=== PATIENT | male | born 1935 | race Caucasian/White ===

== ENCOUNTER 2016-12-03 09:09 | Outpatient (CLI) ==
[2015-04-02 09:22] VITALS: BMI 27.0
[2016-12-03 09:33] LABS: HEMATOCRIT 42.1 % (42.0-52.0); HEMOGLOBIN 14.6 g/dl (14.0-18.0); MEAN CORPUSCULAR HEMOGLOBIN 31.9 pg (27.0-31.0); MEAN CORPUSCULAR HGB CONC 34.7 (31.8-35.4); MEAN CORPUSCULAR VOLUME 92.1 fl (80.0-94.0); RED BLOOD COUNT 4.57 10^6/ul (4.70-6.10); WHITE BLOOD COUNT 4.19 K/ul (4.2-10.2)
[2016-12-03 09:35] LABS: BILIRUBIN,URINE Negative (NEGATIVE); KETONES,URINE Negative (NEGATIVE); LEUKOCYTE ESTERASE ,URINE Negative (NEGATIVE); NITRITE,URINE Negative (NEGATIVE); PH,URINE 5.5 (5-9); PROTEIN,URINE Negative (NEGATIVE); URINE, BLOOD Negative (NEGATIVE)
[2016-12-03 09:42] LABS: ADD URINE MICROSCOPIC YES
[2016-12-03 10:32] LABS: ALBUMIN 3.9 g/dL (3.4-5.0); ANION GAP 14.4; BUN/CREATININE RATIO 15.02; CALCIUM 9.6 mg/dL (8.2-10.2); CREATININE 1.73 mg/dL (0.60-1.10); MAGNESIUM 2.1 mg/dL (1.7-2.2); PHOSPHORUS 3.1 mg/dL (2.3-3.7); POTASSIUM 4.4 mmol/L (3.5-5.1); URIC ACID 6.8 mg/dL (2.6-7.2)
[2016-12-04 09:37] LABS: URINE CREATINE 91.2 mg/dL (Not Estab.)
== END 2016-12-03 09:10 | disposition home or self-care (01) ==
LOC: LAB 09:09
PROVIDERS: ATTEND Internal Medicine Nephrology
DX: N18.3 Chronic kidney disease, stage 3 (moderate) (principal); I10 Essential (primary) hypertension
CPT/HCPCS: 36415; 80069; 81001; 82306; 82570; 83735; 83970; 84156; 84550; 85027

== ENCOUNTER 2017-03-22 14:43 | Outpatient (CLI) ==
[2015-04-02 09:22] VITALS: BMI 27.0
[2017-03-22 15:07] LABS: HEMATOCRIT 35.4 % (42.0-52.0); HEMOGLOBIN 12.1 g/dl (14.0-18.0); MEAN CORPUSCULAR HEMOGLOBIN 32.7 pg (27.0-31.0); MEAN CORPUSCULAR HGB CONC 34.2 (31.8-35.4); MEAN CORPUSCULAR VOLUME 95.7 fl (80.0-94.0); RED BLOOD COUNT 3.7 10^6/ul (4.70-6.10); WHITE BLOOD COUNT 5.49 K/ul (4.2-10.2)
[2017-03-22 15:20] LABS: ALBUMIN/GLOBULIN RATIO 1.48; BILIRUBIN,TOTAL 1.13 mg/dL (0.00-1.20); BUN/CREATININE RATIO 22.81; CALCIUM 9.5 mg/dL (8.2-10.2); CREATININE 1.49 mg/dL (0.60-1.10); TOTAL PROTEIN 6.7 g/dL (5.8-8.1)
== END 2017-03-22 14:44 | disposition home or self-care (01) ==
LOC: LAB 14:43
PROVIDERS: ATTEND Emergency Medicine
DX: E78.5 Hyperlipidemia, unspecified (principal); E11.9 Type 2 diabetes mellitus without complications; I25.10 Atherosclerotic heart disease of native coronary artery without angina pectoris; N18.9 Chronic kidney disease, unspecified
CPT/HCPCS: 36415; 80053; 85027

== ENCOUNTER 2017-10-02 08:08 | Outpatient (CLI) ==
[2015-04-02 09:22] VITALS: BMI 27.0
== END 2017-10-02 08:09 | disposition home or self-care (01) ==
LOC: LAB 08:08
PROVIDERS: ATTEND Emergency Medicine
DX: E11.9 Type 2 diabetes mellitus without complications (principal); E78.5 Hyperlipidemia, unspecified; I25.10 Atherosclerotic heart disease of native coronary artery without angina pectoris
CPT/HCPCS: 36415; 80053; 80061; 83036; 85025

== ENCOUNTER 2017-10-21 12:57 | Outpatient (CLI) ==
[2015-04-02 09:22] VITALS: BMI 27.0
== END 2017-10-21 12:58 | disposition home or self-care (01) ==
LOC: LAB 12:57
PROVIDERS: ATTEND Emergency Medicine
DX: E11.9 Type 2 diabetes mellitus without complications (principal); N18.9 Chronic kidney disease, unspecified
CPT/HCPCS: 36415; 80053

== ENCOUNTER 2018-02-13 13:28 | Outpatient (CLI) ==
[2015-04-02 09:22] VITALS: BMI 27.0
== END 2018-02-13 13:29 | disposition home or self-care (01) ==
LOC: RHC-LAB 13:28
PROVIDERS: ATTEND Emergency Medicine
DX: E11.9 Type 2 diabetes mellitus without complications (principal); E78.5 Hyperlipidemia, unspecified; I25.10 Atherosclerotic heart disease of native coronary artery without angina pectoris
CPT/HCPCS: 36415; 80053; 80061; 83036; 85025

== ENCOUNTER 2018-05-22 11:36 | Outpatient (CLI) ==
[2015-04-02 09:22] VITALS: BMI 27.0
== END 2018-05-22 11:37 | disposition home or self-care (01) ==
LOC: RHC-LAB 11:36
PROVIDERS: ATTEND Emergency Medicine
DX: E11.9 Type 2 diabetes mellitus without complications (principal); E78.5 Hyperlipidemia, unspecified; I25.10 Atherosclerotic heart disease of native coronary artery without angina pectoris; N18.9 Chronic kidney disease, unspecified
CPT/HCPCS: 36415; 80053; 80061; 83036; 84443; 85025

== ENCOUNTER 2018-08-01 11:43 | Outpatient (CLI) ==
[2015-04-02 09:22] VITALS: BMI 27.0
== END 2018-08-01 11:44 | disposition home or self-care (01) ==
LOC: RHC-LAB 11:43
PROVIDERS: ATTEND Nurse Practitioner Family
DX: E11.9 Type 2 diabetes mellitus without complications (principal); I25.10 Atherosclerotic heart disease of native coronary artery without angina pectoris; N18.9 Chronic kidney disease, unspecified; Z12.5 Encounter for screening for malignant neoplasm of prostate
CPT/HCPCS: 36415; 80053; 83036; 85025

== ENCOUNTER 2018-10-31 08:41 | Outpatient (CLI) ==
[2015-04-02 09:22] VITALS: BMI 27.0
== END 2018-10-31 08:42 | disposition home or self-care (01) ==
LOC: LAB 08:41
PROVIDERS: ATTEND Nurse Practitioner Family
DX: E11.9 Type 2 diabetes mellitus without complications (principal); I25.10 Atherosclerotic heart disease of native coronary artery without angina pectoris; E78.5 Hyperlipidemia, unspecified
CPT/HCPCS: 36415; 80053; 80061; 83036; 85025

== ENCOUNTER 2023-07-11 09:42 | Inpatient (IN) ==
--- NOTE | 2023-07-11 09:57 | ED.PDOC ---
General ED Provider: Dr. SHIRA BARRIGA MD Chief Complaint: Weakness Stated Complaint: Patient presents for generalized weakness, decreased interactivity and worsening altered mental status. He has a hx of dementia, DM, HTN and heart disease. Over the past few weeks, his notes he is more altered. He has also been falling more and seems generally weak. No fevers. No cough. 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 He has a small amount of redness to the R side of his face where he hit his head in the yard 3 days ago. He is currently on xarelto. Family unsure if he lost consciousness. No other external injuries or signs of trauma. was hoping she could continue to care for him through the winter but he has become too much due to the worsening mental status. She is unsure if any of his medical problems have worsened or if it is simply his dementia progressing. Time Seen by Provider: 07/11/23 09:42 Mode of Arrival: Ambulance Information Source: Patient and Family () Primary Care Provider: ELSI CHEEK APRN Nursing and Triage Documentation Reviewed and Agree: Yes Review of Systems Review Of Systems Constitutional: Reports Malaise, Weakness and Loss of appetite; Denies Chills or Fever Eyes: Denies Blindness or Vision change Ears, Nose, Mouth, Throat: Denies Ear discharge, Nose discharge or Epistaxis Respiratory: Denies Cough, Shortness of Breath, Stridor or Wheezing Cardiac: Reports Irregular heart rate (known hx of afib, controlled); Denies Chest pain or Palpitations GI: Denies Abdomen distended, Diarrhea, Nausea or Vomiting : Reports Incontinence; Denies Burning or Hematuria Musculoskeletal: Denies Back pain Skin: Reports Bruising (R side of face) All Other Systems: Reviewed and Negative [facility] Medical History Congestive heart failure (03/13/17) I50.9 - Heart failure, unspecified (ICD-10) Diabetes mellitus E11.9 - Type 2 diabetes mellitus without complications (ICD-10) Encounter for completion of form with patient Z02.89 - Encounter for other administrative examinations (ICD-10) Heart valve disease (03/14/17) I38 - Endocarditis, valve unspecified (ICD-10) Hyperlipidemia E78.5 - Hyperlipidemia, unspecified (ICD-10) Hypertension I10 - Essential (primary) hypertension (ICD-10) Immunization refused Z28.21 - Immunization not carried out because of patient refusal (ICD-10) Medicare annual wellness visit, initial Z00.00 - Encounter for general adult medical examination without abnormal findings (ICD-10) Myocardial infarction I21.9 - Acute myocardial infarction, unspecified (ICD-10) Upper respiratory infection with cough and congestion J06.9 - Acute upper respiratory infection, unspecified (ICD-10) Family History (Updated 07/11/23 @ 15:01 by JONY PARRISHLP) Mother Diabetes Heart problem FATHER Heart problem Emphysema lung Social History Smoking and tobacco status: Former smoker Tobacco: How many years used: 25 How long ago did patient quit smokin Second hand smoke exposure: No Smoking risk assessment performed: No Alcohol intake: former Counseling given: No Substance use type: does not use Counseling given: No Kathe/yazdanism: MORMON Special kathe needs: No Agree to transfusion: Yes Caregiver/support person: Yes Foster care: No Household members: spouse Housing: house Marital status: M Lives independently: Yes Number of children: 3 Number of grandchildren: 4 Highest education level completed: Associate degree: academic program service: Yes status: retired branch: [employer] assignments: inside [facility] ([employer]) known or potential exposure: none long-term: No Current occupational status: retired Current occupational exposures/hazards: No 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 Pets and animals: Yes Leisure activites: reading and other History of recent travel: No Do you think of yourself as: straight/heterosexual Current gender identity: male Seatbelt use: always Drives intoxicated or rides with intoxicated local hazmat driver: No Water heater temperature set < 120 degrees: Yes Working smoke detector in home: Yes Fire extinguisher in home: Yes Carbon monoxide detector in home: No Firearms in home: No Surgical History History of right-sided carotid endarterectomy Z98.890 - Other specified postprocedural states (ICD-10) Physical Exam Physical Exam Appearance: Reports No pain distress Ill-appearing: Mild Pain Distress: None Eyes: Reports LENORA and EOMI ENT: Reports Ears normal, Nose normal and Oropharynx normal Neck: Supple Respiratory: Reports Airway patent and Breath sounds clear; Denies Wheezes or Retractions Cardiovascular: Reports Pulses normal and Irregular rhythm (controlled afib on monitor) GI/: Reports Soft and Nontender Musculoskeletal: Reports ROM intact (Hesitant to move on his own but does recoil from all touch most of the time) Skin: Reports Warm and Dry Neurological: Reports Sensation intact and Motor intact Psychiatric: Reports Affect appropriate Physician Notification Case Discussed Physician Notified: Louis Rhodes Time of Notification: 12:01 Comments: Agrees with plan for admission. Critical Care Note Critical Care Note Total Critical Care Time (mins): 0 Course Course 07/11/23 09:54 07/11/23 09:54 Orders, Labs, Meds: Lab Review 07/11/23 07/11/23 07/11/23 09:54 09:59 11:26 WBC 8.66 RBC 4.50 L Hgb 13.6 L Hct 43.7 MCV 97.1 H MCH 30.2 MCHC 31.1 L RDW Coeff of Francisco Javier 14.8 Plt Count 163 Immature Gran % (Auto) 0.2 Neut % (Auto) 80.6 H Lymph % (Auto) 8.8 L [place] % (Auto) 9.7 Eos % (Auto) 0.5 Baso % (Auto) 0.2 Neut # (Auto) 7.0 H Lymph # (Auto) 0.8 [place] # (Auto) 0.8 Eos # (Auto) 0.0 Baso # (Auto) 0.0 Immature Gran # (Auto) 0.0 Sodium 137.6 Potassium 3.43 L Chloride 102.3 Carbon Dioxide 27.3 Anion Gap 11.43 BUN 22.5 H Creatinine 1.10 Estimated GFR (MDRD) 63.00 BUN/Creatinine Ratio 20.45 Glucose 157.0 H Calcium 8.95 Magnesium 2.04 Total Bilirubin 3.21 H AST 30.0 ALT 23.6 Alkaline Phosphatase 115.9 NT-Pro-B Natriuret Pep 64656 H Total Protein 7.02 Albumin 4.17 Globulin 2.85 Albumin/Globulin Ratio 1.46 Urine Color Dark Urine Clarity Clear Urine pH 5.5 Ur Specific [place] >=1.030 Urine Protein 3+ H Urine Glucose (UA) Negative Urine Ketones Negative Urine Blood 1+ H Urine Nitrite Negative Urine Bilirubin 1+ H Urine Urobilinogen 1.0 H Ur Leukocyte Esterase Negative Urine Microscopic RBC 5-10 Ur Squamous Epith Cells 2-5 SARS CoV-2 RNA Rapid ALINA 07/11/23 12:45 WBC RBC Hgb Hct MCV MCH MCHC RDW Coeff of Francisco Javier Plt Count Immature Gran % (Auto) Neut % (Auto) Lymph % (Auto) [place] % (Auto) Eos % (Auto) Baso % (Auto) Neut # (Auto) Lymph # (Auto) [place] # (Auto) Eos # (Auto) Baso # (Auto) Immature Gran # (Auto) Sodium Potassium Chloride Carbon Dioxide Anion Gap BUN Creatinine Estimated GFR (MDRD) BUN/Creatinine Ratio Glucose Calcium Magnesium Total Bilirubin AST ALT Alkaline Phosphatase NT-Pro-B Natriuret Pep Total Protein Albumin Globulin Albumin/Globulin Ratio Urine Color Urine Clarity Urine pH Ur Specific [place] Urine Protein Urine Glucose (UA) Urine Ketones Urine Blood Urine Nitrite Urine Bilirubin Urine Urobilinogen Ur Leukocyte Esterase Urine Microscopic RBC Ur Squamous Epith Cells SARS CoV-2 RNA Rapid ALINA Negative Orders Category Date Time Status ADMIT PATIENT INPATIENT .TO [facility] (MONITORED BED) ADMISSION 07/11/23 12:43 Active ECHOCARDIOGRAM 2D-M MODE Routine CARDIO 07/11/23 13:00 Ordered OXYGEN Routine CARDIO 07/11/23 12:48 Active ACTIVITY .Early Mobilization for VTE Prevention CARE 07/11/23 12:48 Active BLOOD GLUCOSE MONITORING (MED/SURG) 0630,1100,1700,2100 CARE 07/11/23 12:49 Active GIVE HS SNACK 2100 CARE 07/11/23 12:49 Active INTAKE & OUTPUT Q8HR CARE 07/11/23 12:48 Active REMINDER: Give Insulin if Needed 0630,1100,1700,2100 CARE 07/11/23 12:48 Active TELEMETRY MONITORING TELE CARE 07/11/23 12:43 Active VITAL SIGNS Q4HR CARE 07/11/23 12:48 Active WEIGH PATIENT DAILY CARE 07/12/23 06:00 Active ADA 1800 CARLIE. DIET DIETARY 07/11/23 Dinner Ordered FLUID RESTRICTION 1800 ML DIETARY 07/11/23 Dinner Ordered HS SNACK DIETARY 07/11/23 Dinner Ordered Howe [ED CATHETER INSERTION AND CARE] .ONCE EMERGENCY 07/11/23 11:27 Active CBC W/ AUTO DIFF DAILY@0600 LAB 07/12/23 06:00 Ordered CBC W/ AUTO DIFF DAILY@0600 LAB 07/13/23 06:00 Ordered CBC W/ AUTO DIFF Stat LAB 07/11/23 09:54 Completed CMP [COMPREHENSIVE METABOLIC PANEL] Stat LAB 07/11/23 09:54 Completed COMPREHENSIVE METABOLIC PANEL DAILY@0600 LAB 07/12/23 06:00 Ordered COMPREHENSIVE METABOLIC PANEL DAILY@0600 LAB 07/13/23 06:00 Ordered COVID [SARS COV-2 RNA RAPID ALINA] Stat LAB 07/11/23 12:45 Completed ED PROBNP [NT-PROBNP(ED)] Stat LAB 07/11/23 09:59 Completed MAGNESIUM Stat LAB 07/11/23 09:54 Completed UA [URINALYSIS C & S IF INDICATED] Stat LAB 07/11/23 11:26 Completed Acetaminophen [Tylenol] Meds 07/11/23 12:48 Active 650 mg PO Q4H PRN Furosemide [Lasix] Meds 07/11/23 20:00 Active 40 mg IVP Q8HR Furosemide [Lasix] Meds 07/11/23 12:31 Discontinued 60 mg IVP ONCE ONE Hydralazine HCl Meds 07/11/23 12:31 Discontinued 10 mg IVP ONCE ONE Insulin Regular, Human [Humulin R] Meds 07/11/23 12:57 Active See Protocol SUBCUT PRN PRN RESUSCITATION STATUS Routine OTHERS 07/11/23 10:23 Ordered CHEST, 1V AP ONLY Stat RADS 07/11/23 09:[address] HEAD W/O CONTRAST Stat RADS 07/11/23 09:44 Completed Medications Generic Name Dose Route Start Last Admin Trade Name Freq PRN Reason Stop Dose Admin Acetaminophen 650 mg 07/11/23 12:48 Acetaminophen 325 Mg Tablet PO Q4H PRN Mild Pain Atorvastatin Calcium 80 mg 07/11/23 15:40 07/11/23 16:02 Atorvastatin Calcium 20 Mg Tablet PO 80 mg DAILY THOMAS Administration Carvedilol 3.125 mg 07/11/23 17:00 07/11/23 16:03 Carvedilol 3.125 Mg Tablet PO 3.125 mg BIDWM2 THOMAS Administration Ferrous Sulfate 324 mg 07/11/23 15:30 Ferrous Sulfate 324 Mg Tablet.Dr PO 3 TIMES PER WEEK THOMAS Furosemide 40 mg 07/11/23 20:00 Furosemide Inj 40 Mg/4 Ml Vial IVP Q8HR THOMAS Hydralazine HCl 10 mg 07/11/23 14:51 Hydralazine Hcl 20 Mg/Ml Sdv IVP Q6H PRN Hypertension Insulin Human Regular 0 unit 07/11/23 12:57 Insulin Regular, Human 100 Unit/Ml (3ml) Vial SUBCUT PRN PRN Hyperglycemia Protocol Losartan Potassium 50 mg 07/11/23 15:40 07/11/23 16:03 Losartan Potassium 25 Mg Tablet PO 50 mg DAILY THOMAS Administration Olanzapine 5 mg 07/11/23 14:51 Olanzapine 10 Mg Vial IM ONCE PRN Agitation Rivaroxaban 15 mg 07/11/23 17:00 07/11/23 16:02 Rivaroxaban 10 Mg Tablet PO 15 mg QPM THOMAS Administration Discontinued Medications Generic Name Dose Route Start Last Admin Trade Name Freq PRN Reason Stop Dose Admin Atorvastatin Calcium 80 mg 07/12/23 09:00 Atorvastatin Calcium 20 Mg Tablet PO DAILY THOMAS Carvedilol 3.125 mg 07/11/23 17:00 Carvedilol 6.25 Mg Tablet PO BIDWM2 THOMAS Furosemide 60 mg 07/11/23 12:31 07/11/23 12:48 Furosemide Inj 100 Mg/10 Ml Vial IVP 07/11/23 12:32 60 mg ONCE ONE Administration Hydralazine HCl 10 mg 07/11/23 12:31 07/11/23 12:47 Hydralazine Hcl 20 Mg/Ml Sdv IVP 07/11/23 12:32 10 mg ONCE ONE Administration Losartan Potassium 50 mg 07/12/23 09:00 Losartan Potassium 25 Mg Tablet PO DAILY [facility] Vital Signs: Temp Pulse Resp BP Pulse Ox 07/11/23 09:47 97.8 F 67 22 H 203/88 H 97 Discharge Plan Discharge Patient Disposition: ADMITTED INPATIENT Discharge Problem: Acute exacerbation of CHF (congestive heart failure), Dementia, Hypertension, Weakness, Fall Did you review [place] [employer] for ALL controlled substances?: Not Applicable ED Provider: SHIRA BARRIGA Physician Progress Note: MDM CHF: Patient with worsening shortness of breath over the past few weeks with constellation of symptoms concerning for possible CHF exacerbation. Patient not overtly hypoxic but with mild respiratory distress ans Sp)2 89-91%. No overt evidence of acute ischemia. Lower extremity swelling noted. Will trial continue diuresis with strict I/O. No evidence of JORDAN or cardiorenal syndrome. BNP elevated >28,000 Low suspicion for acute PE given exam and history. Given decline in functional status, patient appriprate for admission for diuresis and further cardiac evaluation vs home care. Spoke to Louis Kelly DIRECTORY ASSISTANCE OPERATOR to coordinate inpatient stay.
[2023-07-11 09:58] LABS: BASOPHILS % (AUTO) 0.2 % (0.0-3.0); EOSINOPHILS % (AUTO) 0.5 % (0.0-7.0); HEMATOCRIT 43.7 % (42.0-52.0); HEMOGLOBIN 13.6 g/dl (14.0-18.0); IMMATURE GRANULOCYTE % (AUTO) 0.2 % (0.0-5.0); LYMPHOCYTES # (AUTO) 0.8 K/uL (0.60-3.4); LYMPHOCYTES % (AUTO) 8.8 (10.0-50.0); MEAN CORPUSCULAR HEMOGLOBIN 30.2 pg (27.0-31.0); MEAN CORPUSCULAR HGB CONC 31.1 (31.8-35.4); MEAN CORPUSCULAR VOLUME 97.1 fl (80.0-94.0); MONOCYTES # (AUTO) 0.8 K/uL (0.4-2.0); MONOCYTES % (AUTO) 9.7 (0-10); NEUTROPHILS % (AUTO) 80.6 % (42.2-75.2); PLATELET COUNT 163 10^3/uL (140-440); RDW COEFFICIENT OF VARIATION 14.8 % (11.6-14.8); WHITE BLOOD COUNT 8.66 K/ul (4.2-10.2)
--- NOTE | 2023-07-11 10:19 | DI ---
EXAM: CHEST RADIOGRAPH TECHNIQUE: Single frontal chest radiograph. HISTORY: Cough. Altered mental status. COMPARISON: 11/08/2022 FINDINGS: The patient is mildly leaning and rotated to the left. Sternotomy and CABG, again noted. EKG leads project over the chest. Calcified granuloma of the right mid lung, again noted. At least mild bibasilar atelectasis. Interv al development of pulmonary venous congestion and mild interstitial edema. New tubular structure ciro ng the lateral aspect of the left hilum, either a congested vessel or mucus plugging. Bilateral pleural effusions, moderate on the left and small on the right, progressed. No visible pne umothorax. Stable cardiomegaly. No acute displaced rib fractures are identified. IMPRESSION: 1. Stable cardiomegaly with progression of the pulmonary venous congestion and interstitial edema. 2. Bilateral pleural effusions, moderate on the left and small on the right, progressed.
[2023-07-11 10:20] LABS: ALANINE AMINOTRANSFERASE 23.6 U/L (0-50); ALBUMIN 4.17 g/dL (3.5-5.0); ALKALINE PHOSPHATASE 115.9 U/L (56-119); BILIRUBIN,TOTAL 3.21 mg/dL (0.2-1.3); BLOOD UREA NITROGEN 22.5 mg/dL (9-20); CALCIUM 8.95 mg/dL (8.4-10.2); CARBON DIOXIDE 27.3 mmol/L (22-30.0); CHLORIDE 102.3 mmol/L (98-107); CREATININE 1.1 mg/dL (0.60-1.10); MAGNESIUM 2.04 mg/dL (1.6-2.3); POTASSIUM 3.43 mmol/L (3.5-5.1); SODIUM 137.6 mmol/L (134.5-145); TOTAL PROTEIN 7.02 g/dL (6.3-8.2)
--- NOTE | 2023-07-11 10:26 | CT ---
EXAMINATION: HEAD CT WITHOUT CONTRAST HISTORY: Fall 3 days prior. The patient takes blood thinners. TECHNIQUE: Noncontrast CT of the brain was performed with images acquired from skull base to vertex. 2-D coronal and sagittal reformatted images were obtained from the axial source images. Contrast Dose: None. CT Dose Reduction Techniques Performed: Yes. COMPARISON: None. FINDINGS: Mild to moderate global atrophy. No intracranial hemorrhage or significant extra-axial fluid collection. Griffin cisterna magna, a charis l variant. Mild nonspecific low-density changes of the periventricular white matter. James white differentiation is preserved. No mass effect or midline shift. No hydrocephalus. The orbits have a normal appearance. The visualized mastoid air cells and paranasal sinuses are clear. No visible skull fracture. IMPRESSION: 1. No acute intracranial findings. 2. Mild to moderate global atrophy. 3. Mild chronic microvascular ischemic changes. All CT scans are performed using dose optimization techniques as appropriate to the performed exam an d include at least one of the following: Automated exposure control, adjustment of the mA and/or kV according t o size, and the use of iterative reconstruction technique.
[2023-07-11 11:32] LABS: BILIRUBIN,URINE 1+ (NEGATIVE); CLARITY,URINE Clear (CLEAR); COLOR,URINE Dark (YELLOW); GLUCOSE, URINE (UA) Negative (NEGATIVE); KETONES,URINE Negative (NEGATIVE); LEUKOCYTE ESTERASE ,URINE Negative (NEGATIVE); NITRITE,URINE Negative (NEGATIVE); PH,URINE 5.5 (5-9); PROTEIN,URINE 3+ (NEGATIVE); URINE, BLOOD 1+ (NEGATIVE)
[2023-07-11] MEDS ORDERED: LASIX IVP ONE (12:31)
[2023-07-11] MEDS ORDERED: HYDRALAZINE HCL IVP ONE (12:31)
[2023-07-11] MEDS ORDERED: TYLENOL PO PRN (12:48)
[2023-07-11 13:12] LABS: SARS COV-2 RNA RAPID NAAT NEGATIVE (NEGATIVE)
[2023-07-11] MEDS ORDERED: HYDRALAZINE HCL IVP PRN (14:51)
[2023-07-11] MEDS ORDERED: ZYPREXA IM PRN (14:51)
--- NOTE | 2023-07-11 14:51 | PCM ---
Date of Service Date Seen by Provider: 07/11/23 Time Seen by Provider: 14:30 Admit Day/Time Admission Date: 07/11/23 Reason for Admission Chief Complaint: CHF EXACERBATION Hospital Provider Hospital Provider: DOLORES CURRY, [facility] Primary Care Physician Primary Care Physician: ELSI CHEEK APRN History of Present Illness History of Present Illness: 88 yo male presented with family from home for weakness and worsening confusion. Patient has pmh of dementia and is unable to provide HPI and ROS. Patient has experienced 2 falls in the last 3 days and has continued to become more weak per daughter and . states he is too much for her to take care of at this point and is requesting long-term placement once patient becomes medically stable. Denies any injuries since his fall that they are aware of. Does have bruising to the R eye from the fall 3 days ago. In ER O2 sat was dropping into the 90s. He was placed on 2L of O2 and improved to 96-97%. He also has pmh of CHF and bnp was found to be >68680. Case Discussed With Case Discussed With: Patient's case was discussed with the ER Physicians, Dr. DEL RIO Medical History Congestive heart failure (03/13/17) I50.9 - Heart failure, unspecified (ICD-10) Diabetes mellitus E11.9 - Type 2 diabetes mellitus without complications (ICD-10) Encounter for completion of form with patient Z02.89 - Encounter for other administrative examinations (ICD-10) Heart valve disease (03/14/17) I38 - Endocarditis, valve unspecified (ICD-10) Hyperlipidemia E78.5 - Hyperlipidemia, unspecified (ICD-10) Hypertension I10 - Essential (primary) hypertension (ICD-10) Immunization refused Z28.21 - Immunization not carried out because of patient refusal (ICD-10) Medicare annual wellness visit, initial Z00.00 - Encounter for general adult medical examination without abnormal findings (ICD-10) Myocardial infarction I21.9 - Acute myocardial infarction, unspecified (ICD-10) Upper respiratory infection with cough and congestion J06.9 - Acute upper respiratory infection, unspecified (ICD-10) Surgical History History of right-sided carotid endarterectomy Z98.890 - Other specified postprocedural states (ICD-10) Family History Mother Diabetes Heart problem FATHER Heart problem Social History Smoking and tobacco status: Former smoker Tobacco: How many years used: 25 How long ago did patient quit smokin Second hand smoke exposure: No Smoking risk assessment performed: No Alcohol intake: former Counseling given: No Substance use type: does not use Counseling given: No Kathe/gnosticism: GNOSTICIST Special kathe needs: No Agree to transfusion: Yes Caregiver/support person: Yes Foster care: No Household members: spouse Housing: house Marital status: M Lives independently: Yes Number of children: 3 Number of grandchildren: 4 Highest education level completed: Associate degree: academic program service: Yes status: retired branch: [employer] assignments: inside [facility] ([facility]) known or potential exposure: none CHCF: No Current occupational status: retired Current occupational exposures/hazards: No 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 Pets and animals: Yes Leisure activites: reading and other History of recent travel: No Do you think of yourself as: straight/heterosexual Current gender identity: male Seatbelt use: always Drives intoxicated or rides with intoxicated lyft driver: No Water heater temperature set < 120 degrees: Yes Working smoke detector in home: Yes Fire extinguisher in home: Yes Carbon monoxide detector in home: No Firearms in home: No Allergies Allergies Allergy/AdvReac Type Severity Reaction Status Date / Time Penicillins Allergy Unknown Unknown Verified 07/11/23 09:44 Current Medications Home Medications ferrous sulfate 324 mg (65 mg iron) tablet,delayed release 324 mg PO BID #60 tab-caps 03/15/14 [History Confirmed 07/11/23 Last Taken Unknown] calcium cmb no.1-vit [id number] 120 mg-1,000 unit-10 mg tablet (Vitamin D3 (with calcium cit-phos)) 1 ea PO DAILY 06/22/14 [History Confirmed 07/11/23 Last Taken Unknown] fish oil-fat acid comb8-herb [id number] 1,200 mg (400 [id number]) cap ([place] 3-6-9 Triple [place]) 1,200 mg PO DAILY 06/22/14 [History Confirmed 07/11/23 Last Taken Unknown] atorvastatin 40 mg tablet 80 mg PO DAILY 05/09/20 [History Confirmed 07/11/23 Last Taken Unknown] albuterol sulfate 90 mcg/actuation aerosol inhaler 2 puff inhalation QID shortness of breath or wheezing #8.5 grams 03/05/22 [Rx Confirmed 07/11/23 Last Taken Unknown] losartan 50 mg tablet 50 mg PO DAILY 09/19/22 [History Confirmed 07/11/23 Last Taken Unknown] rivaroxaban 15 mg tablet (Xarelto) 15 mg PO DAILY 09/19/22 [History Confirmed 07/11/23 Last Taken Unknown] bumetanide 1 mg tablet 1 mg PO .COMPLEX #30 tabs 11/06/22 [Rx Confirmed 07/11/23 Last Taken Unknown] potassium chloride 10 mEq tablet,extended release 10 meq PO QDAY #30 tabs 11/09/22 [Rx Confirmed 07/11/23 Last Taken Unknown] insulin NPH isoph U-100 human 100 unit/mL subcutaneous suspension (Novolin N NPH U-100 Insulin isophane) 15 unit subcut QAM 03/26/23 [History Confirmed 07/11/23 Last Taken Unknown] carvedilol 6.25 mg tablet See Rx Instructions .Route .COMPLEX #60 tabs 05/01/23 [Rx Confirmed 07/11/23 Last Taken Unknown] Home Acetaminophen (Acetaminophen 325 Mg Tablet) 650 mg PO Q4H PRN PRN Reason: Mild Pain Furosemide (Furosemide Inj 40 Mg/4 Ml Vial) 40 mg IVP Q8HR [facility] Insulin Human Regular (Insulin Regular, Human 100 Unit/Ml (3ml) Vial) 0 unit SUBCUT PRN PRN; Protocol PRN Reason: Hyperglycemia Discontinued Medications Furosemide (Furosemide Inj 100 Mg/10 Ml Vial) 60 mg IVP ONCE ONE Stop: 07/11/23 12:32 Last Admin: 07/11/23 12:48 Dose: 60 mg Hydralazine HCl (Hydralazine Hcl 20 Mg/Ml Sdv) 10 mg IVP ONCE ONE Stop: 07/11/23 12:32 Last Admin: 07/11/23 12:47 Dose: 10 mg Physical examination Most Recent Vital Signs: Most Recent Vital Signs Temperature 97.8 F 07/11/23 09:47 Temperature Source Infrared 07/11/23 09:47 Pulse Rate 69 07/11/23 14:18 Respiratory Rate 20 07/11/23 14:18 Blood Pressure 206/79 H 07/11/23 14:18 O2 Sat by Pulse Oximetry 97 07/11/23 14:18 Oxygen Flow Rate 2 07/11/23 14:18 Height 6 ft 2 in 07/11/23 09:47 Weight 204 lb 5.896 oz 07/11/23 09:47 Appearance: Positive No Apparent Distress, Ill-Appearing and Thin Skin: Positive Warm and Ecchymosis (scattered on arms, R eye) HEENT: Positive Normocephalic and Atraumatic Neck: Positive Supple and Midline Trachea Chest/Lungs: Positive Symmetrical With Equal Breath Sounds, Good Air Movement all 4 Lung Macias and Other (crackles in bilateral lung bases) Heart: Positive RRR, Pulses Normal, No S3 Auscultated and No S4 Auscultated GI/: Positive Soft, Nontender, Bowel Sounds Normal and No Distention Musculoskeletal: Positive Not Examined Extremities: Positive Edema (+3-4 pitting edema bilaterally), Intact Peripheral Pulses and Stable Joints Without Laxity Neurological: Positive Sensation Intact, Motor intact, Alert, Disorinted and Other (yelling, incomprehensible sounds) Psychiatric: Negative Oriented x4, Appropriate Mood, Appropriate Affect, Intact Memory, Good Short-Term Recall, Good Long-Term Recall, Normal Judgement, Normal Insight, Other or Not Examined Labs This Visit Labs This Visit: Labs This Visit 07/11/23 07/11/23 07/11/23 09:54 09:59 11:26 WBC 8.66 RBC 4.50 L Hgb 13.6 L Hct 43.7 MCV 97.1 H MCH 30.2 MCHC 31.1 L RDW Coeff of Francisco Javier 14.8 Plt Count 163 Immature Gran % (Auto) 0.2 Neut % (Auto) 80.6 H Lymph % (Auto) 8.8 L [place] % (Auto) 9.7 Eos % (Auto) 0.5 Baso % (Auto) 0.2 Neut # (Auto) 7.0 H Lymph # (Auto) 0.8 [place] # (Auto) 0.8 Eos # (Auto) 0.0 Baso # (Auto) 0.0 Immature Gran # (Auto) 0.0 Sodium 137.6 Potassium 3.43 L Chloride 102.3 Carbon Dioxide 27.3 Anion Gap 11.43 BUN 22.5 H Creatinine 1.10 Estimated GFR (MDRD) 63.00 BUN/Creatinine Ratio 20.45 Glucose 157.0 H Calcium 8.95 Magnesium 2.04 Total Bilirubin 3.21 H AST 30.0 ALT 23.6 Alkaline Phosphatase 115.9 NT-Pro-B Natriuret Pep 65633 H Total Protein 7.02 Albumin 4.17 Globulin 2.85 Albumin/Globulin Ratio 1.46 Urine Color Dark Urine Clarity Clear Urine pH 5.5 Ur Specific [place] >=1.030 Urine Protein 3+ H Urine Glucose (UA) Negative Urine Ketones Negative Urine Blood 1+ H Urine Nitrite Negative Urine Bilirubin 1+ H Urine Urobilinogen 1.0 H Ur Leukocyte Esterase Negative Urine Microscopic RBC 5-10 Ur Squamous Epith Cells 2-5 SARS CoV-2 RNA Rapid ALINA 07/11/23 12:45 WBC RBC Hgb Hct MCV MCH MCHC RDW Coeff of Francisco Javier Plt Count Immature Gran % (Auto) Neut % (Auto) Lymph % (Auto) [place] % (Auto) Eos % (Auto) Baso % (Auto) Neut # (Auto) Lymph # (Auto) [place] # (Auto) Eos # (Auto) Baso # (Auto) Immature Gran # (Auto) Sodium Potassium Chloride Carbon Dioxide Anion Gap BUN Creatinine Estimated GFR (MDRD) BUN/Creatinine Ratio Glucose Calcium Magnesium Total Bilirubin AST ALT Alkaline Phosphatase NT-Pro-B Natriuret Pep Total Protein Albumin Globulin Albumin/Globulin Ratio Urine Color Urine Clarity Urine pH Ur Specific [place] Urine Protein Urine Glucose (UA) Urine Ketones Urine Blood Urine Nitrite Urine Bilirubin Urine Urobilinogen Ur Leukocyte Esterase Urine Microscopic RBC Ur Squamous Epith Cells SARS CoV-2 RNA Rapid ALINA Negative Imaging Imaging: EXAMINATION: HEAD CT WITHOUT CONTRAST FINDINGS: Mild to moderate global atrophy. No intracranial hemorrhage or significant extra-axial fluid collection. Griffin cisterna magna, a normal variant. Mild nonspecific low-density changes of the periventricular white matter. James white differentiation is preserved. No mass effect or midline shift. No hydrocephalus. The orbits have a normal appearance. The visualized mastoid air cells and paranasal sinuses are clear. No visible skull fracture. IMPRESSION: 1. No acute intracranial findings. 2. Mild to moderate global atrophy. 3. Mild chronic microvascular ischemic changes. EXAM: CHEST RADIOGRAPH FINDINGS: The patient is mildly leaning and rotated to the left. Sternotomy and CABG, again noted. EKG leads project over the chest. Calcified granuloma of the right mid lung, again noted. At least mild bibasilar atelectasis. Interval development of pulmonary venous congestion and mild interstitial edema. New tubular structure along the lateral aspect of the left hilum, either a congested vessel or mucus plugging. Bilateral pleural effusions, moderate on the left and small on the right, progressed. No visible pneumothorax. Stable cardiomegaly. No acute displaced rib fractures are identified. IMPRESSION: 1. Stable cardiomegaly with progression of the pulmonary venous congestion and interstitial edema. 2. Bilateral pleural effusions, moderate on the left and small on the right, progressed. Review Statement Review Statement: I have independently reviewed and interpreted the labs/EKGs/imaging that were ordered by the ER provider. I have reviewed all outside records that are available currently in our EMR including imaging/notes/labs from previous visits. Plan Plan: 1. Acute Hypoxic Respiratory Failure in the setting of CHF Exacerbation - given 60 mg lasix in ER. Continue lasix 40 mg Q8H, strict I&O, daily weight, 1800 fluid restriction, dajuan hose, wean off O2 as tolerated 2. Hypertension - unstable, likely due to agitation, hydralazine given in ER - ordered prn for SBP>160 and DBP>90, continue home medications 3. CHF, unknown type - worsening pleural effusions noted on x-ray, checking echo, see #1 for current plan 4. COPD - chronic, does not appear in exacerbation, monitor 5. CKD - appears at baseline, monitor 6. Weakness/Frequent Falls/Worsening Dementia - refer to SNF for placement upon discharge 7. Diabetes Mellitus, Type 2 - ADA diet, accuchecks qid with ssi, hold oral medications if applicable DVT Prophylaxis: Xarelto Time Spent: Greater than 80 minutes spent with patient, 50% of the time spent with this patient was devoted to counseling and coordination of care. Advanced Care Plannin minutes spent discussing advance care planning. Disposition: Admit to: Med/Surg Inpatient DNR Discussed Plan of Care with Dr. Rickie Reyna Medications Medication Orders: Medications Ordered Category Date Time Status Acetaminophen [Tylenol] Meds 07/11/23 12:48 Active 650 mg PO Q4H PRN Furosemide [Lasix] Meds 07/11/23 20:00 Active 40 mg IVP Q8HR Insulin Regular, Human [Humulin R] Meds 07/11/23 12:57 Active See Protocol SUBCUT PRN PRN
[2023-07-11 14:55] VITALS: BMI 29.0
[2023-07-11] MEDS ORDERED: FERROUS SULFATE PO SCH (15:30)
[2023-07-11] MEDS: XARELTO PO SCH (16:02)
[2023-07-11] MEDS: LIPITOR PO SCH (16:02)
[2023-07-11] MEDS: COREG PO SCH (16:03)
[2023-07-11] MEDS: COZAAR PO SCH (16:03)
[2023-07-11] MEDS ORDERED: COREG PO SCH (17:00)
[2023-07-11] MEDS: LASIX IVP SCH ×2 (20:11→20:15)
[2023-07-12] MEDS: LASIX IVP SCH ×3 (05:18→17:12)
[2023-07-12 05:37] LABS: BASOPHILS % (AUTO) 0.2 % (0.0-3.0); EOSINOPHILS % (AUTO) 0.2 % (0.0-7.0); HEMATOCRIT 42.2 % (42.0-52.0); HEMOGLOBIN 13.2 g/dl (14.0-18.0); IMMATURE GRANULOCYTE % (AUTO) 0.2 % (0.0-5.0); LYMPHOCYTES # (AUTO) 0.7 K/uL (0.60-3.4); LYMPHOCYTES % (AUTO) 7.3 (10.0-50.0); MEAN CORPUSCULAR HEMOGLOBIN 30.4 pg (27.0-31.0); MEAN CORPUSCULAR HGB CONC 31.3 (31.8-35.4); MEAN CORPUSCULAR VOLUME 97.2 fl (80.0-94.0); MONOCYTES % (AUTO) 10.2 (0-10); NEUTROPHILS # (AUTO) 7.8 K/ul (2.0-6.9); NEUTROPHILS % (AUTO) 81.9 % (42.2-75.2); PLATELET COUNT 154 10^3/uL (140-440); RED BLOOD COUNT 4.34 10^6/ul (4.70-6.10); WHITE BLOOD COUNT 9.57 K/ul (4.2-10.2)
[2023-07-12 05:51] LABS: ALANINE AMINOTRANSFERASE 22.5 U/L (0-50); ALBUMIN 3.55 g/dL (3.5-5.0); ALKALINE PHOSPHATASE 96.8 U/L (56-119); ASPARTATE AMINO TRANSFERASE 33.2 U/L (17-59); BILIRUBIN,TOTAL 2.93 mg/dL (0.2-1.3); BLOOD UREA NITROGEN 22.4 mg/dL (9-20); CALCIUM 9.04 mg/dL (8.4-10.2); CARBON DIOXIDE 33.2 mmol/L (22-30.0); CHLORIDE 99.9 mmol/L (98-107); CREATININE 1.05 mg/dL (0.60-1.10); GLUCOSE 131.4 mg/dL (74-106); TOTAL PROTEIN 6.11 g/dL (6.3-8.2)
[2023-07-12 05:55] LABS: POTASSIUM 2.79 mmol/L (3.5-5.1)
[2023-07-12] MEDS ORDERED: POTASSIUM CHLORIDE 20 MEQ/100 ML PREMIX 40 MEQ/200 ML BAG IV ONE (06:01)
[2023-07-12] MEDS ORDERED: K-DUR PO ONE ×2 (06:01→16:37)
[2023-07-12] MEDS: COZAAR PO SCH (08:43)
[2023-07-12] MEDS: LIPITOR PO SCH (08:43)
[2023-07-12] MEDS: COREG PO SCH ×2 (08:43→17:12)
[2023-07-12] MEDS ORDERED: LIPITOR PO SCH (09:00)
[2023-07-12] MEDS ORDERED: COZAAR PO SCH (09:00)
--- NOTE | 2023-07-12 10:36 | PCM.PROG ---
Date/Time Seen Date Seen by Provider: 07/12/23 Time Seen by Provider: 08:30 Provider [facility] Chief Complaint Chief Complaint: CHF EXACERBATION Subjective Subjective: No events overnight. Diuresing well. Awake and alert in bed this am with family at bedside. Family voiced concerns for agitation and hallucinations secondary to dementia. Requested patient be put on medication to help with this. Objective Appearance: Positive No Apparent Distress Chest/Lungs: Positive Symmetrical With Equal Breath Sounds, Good Air Movement all 4 Lung Macias and Other (crackles bilaterally in lung bases) Heart: Positive RRR, Pulses Normal and Murmur GI/: Positive Soft, Nontender and Bowel Sounds Normal Musculoskeletal: Positive Not Examined Neurological: Positive Sensation Intact, Motor intact, Alert, Disorinted and Muscle Strength 5/5 in Upper and Lower Extremities Bilaterally Additional Findings: Pitting edema improved from +3-4 to +2-3 today. Vital Signs Vital Signs: Vital Signs: Last 24 Hours 07/11/23 14:18 07/11/23 14:39 07/11/23 14:39 Temperature 97.7 F Temperature Source Axillary Pulse Rate 69 78 Pulse Rate [Apical] 76 Pulse Rate [Radial] 78 Respiratory Rate 20 20 20 Blood Pressure 206/79 H Blood Pressure Mean Blood Pressure Location Blood Pressure Position O2 Sat by Pulse Oximetry 97 98 Oxygen Delivery Method Room Air Room Air Oxygen Flow Rate 2 2 2 Height 6 ft 2 in Weight 226 lb Telemetry Type Telemetry Monitoring Irregular Telemetry Rate (Approximate) Telemetry Heart Rate EKG QRS Interval Telemetry Strip Reading 07/11/23 15:29 07/11/23 15:33 07/11/23 17:59 Temperature 97.7 F Temperature Source Axillary Pulse Rate 58 L Pulse Rate [Apical] Pulse Rate [Radial] Respiratory Rate 17 Blood Pressure 170/90 H 146/76 H Blood Pressure Mean 116 99 Blood Pressure Location Right Arm Right Arm Blood Pressure Position Supine Sitting O2 Sat by Pulse Oximetry 98 Oxygen Delivery Method Nasal Cannula Room Air Oxygen Flow Rate 2 2 Height Weight Telemetry Type Remote Telemetry Telemetry Monitoring Started Irregular Telemetry Rate (Approximate) 60-70 BPM Telemetry Heart Rate EKG QRS Interval 0.08 Telemetry Strip Reading AFIB 07/11/23 18:55 07/11/23 19:00 07/11/23 20:00 Temperature Temperature Source Pulse Rate Pulse Rate [Apical] 60 Pulse Rate [Radial] Respiratory Rate 20 Blood Pressure Blood Pressure Mean Blood Pressure Location Blood Pressure Position O2 Sat by Pulse Oximetry Oxygen Delivery Method Nasal Cannula Oxygen Flow Rate 2 Height Weight Telemetry Type Remote Telemetry Remote Telemetry Telemetry Monitoring Continues Continues Irregular Telemetry Rate (Approximate) 50-60 BPM Telemetry Heart Rate 55 L EKG QRS Interval 0.14 H Telemetry Strip Reading 14 beat run of V-Tach A-Fib - Colin 07/11/23 20:09 07/11/23 22:00 07/12/23 01:00 Temperature 96.7 F L Temperature Source Temporal Artery Scan Pulse Rate 56 L Pulse Rate [Apical] Pulse Rate [Radial] Respiratory Rate 20 Blood Pressure 147/69 H Blood Pressure Mean 95 Blood Pressure Location Right Arm Blood Pressure Position Supine O2 Sat by Pulse Oximetry 98 Oxygen Delivery Method Nasal Cannula Nasal Cannula Oxygen Flow Rate 2 2 Height Weight Telemetry Type Remote Telemetry Telemetry Monitoring Continues Irregular Telemetry Rate (Approximate) 50-60 BPM Telemetry Heart Rate 57 L EKG QRS Interval 0.13 H Telemetry Strip Reading A-Fib w/ BBB 07/12/23 05:03 07/12/23 05:03 07/12/23 05:32 Temperature 97.8 F Temperature Source Oral Pulse Rate 70 Pulse Rate [Apical] Pulse Rate [Radial] Respiratory Rate 18 Blood Pressure 140/68 Blood Pressure Mean 92 Blood Pressure Location Right Arm Blood Pressure Position Supine O2 Sat by Pulse Oximetry 96 Oxygen Delivery Method Room Air Nasal Cannula Oxygen Flow Rate 2 Height Weight 217 lb 7 oz Telemetry Type Telemetry Monitoring Irregular Telemetry Rate (Approximate) Telemetry Heart Rate EKG QRS Interval Telemetry Strip Reading 07/12/23 07:00 07/12/23 08:00 07/12/23 09:40 Temperature 98.2 F Temperature Source Oral Pulse Rate 64 Pulse Rate [Apical] Pulse Rate [Radial] Respiratory Rate 20 Blood Pressure 146/78 H Blood Pressure Mean 100 Blood Pressure Location Right Arm Blood Pressure Position Supine O2 Sat by Pulse Oximetry 97 Oxygen Delivery Method Nasal Cannula Nasal Cannula Oxygen Flow Rate 2 2 Height Weight Telemetry Type Remote Telemetry Telemetry Monitoring Continues Irregular Telemetry Rate (Approximate) Telemetry Heart Rate 63 EKG QRS Interval 0.12 H Telemetry Strip Reading AFIB WITH BBB Lab Results Lab Results: Lab Results: Last 24 Hours 07/12/23 07/11/23 07/11/23 05:11 12:45 11:26 WBC 9.57 RBC 4.34 L Hgb 13.2 L Hct 42.2 MCV 97.2 H MCH 30.4 MCHC 31.3 L RDW Coeff of Francisco Javier 15.0 H Plt Count 154 Immature Gran % (Auto) 0.2 Neut % (Auto) 81.9 H Lymph % (Auto) 7.3 L [place] % (Auto) 10.2 H Eos % (Auto) 0.2 Baso % (Auto) 0.2 Neut # (Auto) 7.8 H Lymph # (Auto) 0.7 [place] # (Auto) 1.0 Eos # (Auto) 0.0 Baso # (Auto) 0.0 Immature Gran # (Auto) 0.0 Sodium 142.0 Potassium 2.79 L* Chloride 99.9 Carbon Dioxide 33.2 H Anion Gap 11.69 BUN 22.4 H Creatinine 1.05 Estimated GFR (MDRD) 67.00 BUN/Creatinine Ratio 21.33 Glucose 131.4 H Calcium 9.04 Total Bilirubin 2.93 H AST 33.2 ALT 22.5 Alkaline Phosphatase 96.8 NT-Pro-B Natriuret Pep Total Protein 6.11 L Albumin 3.55 Globulin 2.56 Albumin/Globulin Ratio 1.38 Urine Color Dark Urine Clarity Clear Urine pH 5.5 Ur Specific [place] >=1.030 Urine Protein 3+ H Urine Glucose (UA) Negative Urine Ketones Negative Urine Blood 1+ H Urine Nitrite Negative Urine Bilirubin 1+ H Urine Urobilinogen 1.0 H Ur Leukocyte Esterase Negative Urine Microscopic RBC 5-10 Ur Squamous Epith Cells 2-5 SARS CoV-2 RNA Rapid ALINA Negative 07/11/23 09:59 WBC RBC Hgb Hct MCV MCH MCHC RDW Coeff of Francisco Javier Plt Count Immature Gran % (Auto) Neut % (Auto) Lymph % (Auto) [place] % (Auto) Eos % (Auto) Baso % (Auto) Neut # (Auto) Lymph # (Auto) [place] # (Auto) Eos # (Auto) Baso # (Auto) Immature Gran # (Auto) Sodium Potassium Chloride Carbon Dioxide Anion Gap BUN Creatinine Estimated GFR (MDRD) BUN/Creatinine Ratio Glucose Calcium Total Bilirubin AST ALT Alkaline Phosphatase NT-Pro-B Natriuret Pep 56560 H Total Protein Albumin Globulin Albumin/Globulin Ratio Urine Color Urine Clarity Urine pH Ur Specific [place] Urine Protein Urine Glucose (UA) Urine Ketones Urine Blood Urine Nitrite Urine Bilirubin Urine Urobilinogen Ur Leukocyte Esterase Urine Microscopic RBC Ur Squamous Epith Cells SARS CoV-2 RNA Rapid ALINA Additional Comments Additional Comments: I have independently reviewed and interpreted the labs/EKGs/imaging ordered during this hospital stay. I have reviewed outside records that are available in our EMR that pertain to medical stay including imaging/notes/labs from previous visits. Active Medications Active Medications: Medications Generic Name Dose Route Start Last Admin Trade Name Freq PRN Reason Stop Dose Admin Acetaminophen 650 mg 07/11/23 12:48 Acetaminophen 325 Mg Tablet PO Q4H PRN Mild Pain Alprazolam 0.5 mg 07/12/23 10:00 Alprazolam 0.5 Mg Tablet PO BIDAC2 THOMAS Atorvastatin Calcium 80 mg 07/11/23 15:40 07/12/23 08:43 Atorvastatin Calcium 20 Mg Tablet PO 80 mg DAILY THOMAS Administration Carvedilol 3.125 mg 07/11/23 17:00 07/12/23 08:43 Carvedilol 3.125 Mg Tablet PO 3.125 mg BIDWM2 THOMAS Administration Ferrous Sulfate 324 mg 07/11/23 15:30 Ferrous Sulfate 324 Mg Tablet.Dr PO 3 TIMES PER WEEK THOMAS Furosemide 40 mg 07/11/23 20:00 07/12/23 05:18 Furosemide Inj 40 Mg/4 Ml Vial IVP 40 mg Q8HR THOMAS Administration Hydralazine HCl 10 mg 07/11/23 14:51 Hydralazine Hcl 20 Mg/Ml Sdv IVP Q6H PRN Hypertension Insulin Human Regular 0 unit 07/11/23 12:57 Insulin Regular, Human 100 Unit/Ml (3ml) Vial SUBCUT PRN PRN Hyperglycemia Protocol Losartan Potassium 50 mg 07/11/23 15:40 07/12/23 08:43 Losartan Potassium 25 Mg Tablet PO 50 mg DAILY THOMAS Administration Olanzapine 5 mg 07/11/23 14:51 07/12/23 08:42 Olanzapine 10 Mg Vial IM 5 mg ONCE PRN Administration Agitation Rivaroxaban 15 mg 07/11/23 17:00 07/11/23 16:02 Rivaroxaban 10 Mg Tablet PO 15 mg QPM THOMAS Administration Sodium Chloride 1 syr 07/11/23 21:00 07/12/23 05:19 0.9% Sodium Chloride 10 Ml Disp.Syrin IVF 1 syr Q8HR THOMAS Administration Trazodone HCl 50 mg 07/12/23 21:00 Trazodone Hcl 50 Mg Tablet PO BEDTIME THOMAS Plan Plan: 1. Acute Hypoxic Respiratory Failure in the setting of CHF Exacerbation - Improving, edema decreased. Continue lasix 40 mg Q8H, strict I&O, daily weight, 1800 fluid restriction, dajuan hose, wean off O2 as tolerated 2. Hypertension - Improving, likely due to agitation, hydralazine given in ER - ordered prn for SBP>160 and DBP>90, continue home medications 3. Chronic Diastolic Heart Failure - last echo in 2019 showed severe aortic stenosis, EF 51-55%, and grade II diastolic dysfunction, worsening pleural effusions noted on x-ray, checking echo, see #1 for current plan 4. Hypokalemia - in setting of diuretic use, 2.7 this am, replace and repeat bmp this afternoon, telemetry, monitor COPD - chronic, does not appear in exacerbation, monitor 5. CKD - appears at baseline, monitor 6. Weakness/Frequent Falls/Worsening Dementia - refer to SNF for placement upon discharge 7. Diabetes Mellitus, Type 2 - ADA diet, accuchecks qid with ssi, hold oral medications if applicable Accepted to [facility] per family request upon discharge once medically stable Review Statement Review Statement: I have personally discussed and reviewed the patient's visit/currently labs/imaging/decision making with Dr. Reyna, my supervising attending. Greater that 50 minutes spent with patient, 50% of the time spent with this patient was devoted to counseling and coordination of care.
[2023-07-12] MEDS: HUMULIN R SUBCUT PRN ×2 (11:07→17:13)
[2023-07-12] MEDS: XANAX PO SCH ×2 (11:07→17:12)
[2023-07-12 15:24] LABS: BLOOD UREA NITROGEN 25.9 mg/dL (9-20); CALCIUM 8.63 mg/dL (8.4-10.2); CARBON DIOXIDE 35.2 mmol/L (22-30.0); CHLORIDE 97.1 mmol/L (98-107); CREATININE 1.2 mg/dL (0.60-1.10); GLUCOSE 160.4 mg/dL (74-106); POTASSIUM 3.2 mmol/L (3.5-5.1); SODIUM 139.2 mmol/L (134.5-145)
--- NOTE | 2023-07-12 15:50 | ECHO2D ---
Date of Exam: 07/12/2023 Ordering Physician: HOSPITALISTWILIAN JOY/ PCP Gisel CHEEK APRN Room #: 112 Reason for Echo: SOB, DM2, CAD, CABG, HYPERLIPIDEMIA, SYSTOLIC MURMUR Murmurs: SYSTOLIC, II/ SYSTOLIC MURMUR M-Mode Normal Adult Results LV Dimensions Normal Adult Results AoV Opening excursions >1.6 0.9 LVEDD-base- 3.5-5.8 4.9 Ao root dimensions 2.0-3.7 4.1 LVESD-base- 3.1-4.6 L. Atrium dimensions 1.9-3.8 4.2 Post. Wall thickness 0.8-1.1 1.6 IV septum (thickness) 0.7-1.2 1.6 Post. Wall excursion 0.72-1.3 NORMAL Septal motion 0.7 Systolic motion R. Ventricular cavity 1.5-2.0 NORMAL LVEF 60% 55-66% Paradoxical septal wall motion NORMAL 2-D : CALCIFIC STENOSIS AORTIC VALVE, ENLARGED LEFT ATRIAL CAVITY, HYPOKINETIC SEPTAL WALL--TRICUSPID VALVE, PULMONARY VALVE AND MITRAL VALVES NORMAL, NO EFFUSION, NO THROMBUS COLOR FLOW: MODERATE AORTIC REGURGITATION, MILD TO TRACE MITRAL REGURGITATION M-MODE: MV: NORMAL AV: CALCIFIC AORTIC VALVES WITH SEVERE AORTIC STENOSIS, PLANIMETRY 0.6 CM2 TV: NORMAL PV: NORMAL CHAMBER SIZE: ENLARGED LEFT ATRIAL CAVITY WALL MOTION: STIFF, HYPOKINETIC SEPTAL WALL PERICARDIUM: NORMAL INTERPRETATION: 1. LEFT VENTRICLE HYPERTROPHY MODERATE WITH ENLARGED LEFT ATRIAL CAVITY 2. SEVERE AORTIC STENOSIS--CALCIFIC 3. HYPOKINETIC SEPTAL WALL (STIFF) --EJECTION FRACTION 55% 4. LEFT VENTRICLE SIZE--NORMAL MTDD
[2023-07-12] MEDS ORDERED: ATIVAN IVP PRN (16:48)
[2023-07-12] MEDS: XARELTO PO SCH (17:12)
[2023-07-12] MEDS: ATIVAN IM PRN (19:55)
[2023-07-12] MEDS: DESYREL PO SCH (20:01)
[2023-07-13 05:07] LABS: BASOPHILS % (AUTO) 0.2 % (0.0-3.0); EOSINOPHILS # (AUTO) 0.1 K/ul (0.0-0.7); HEMATOCRIT 44.7 % (42.0-52.0); IMMATURE GRANULOCYTE % (AUTO) 0.3 % (0.0-5.0); LYMPHOCYTES # (AUTO) 0.9 K/uL (0.60-3.4); MEAN CORPUSCULAR HEMOGLOBIN 30.2 pg (27.0-31.0); MEAN CORPUSCULAR HGB CONC 31.3 (31.8-35.4); MEAN CORPUSCULAR VOLUME 96.5 fl (80.0-94.0); MONOCYTES # (AUTO) 1.1 K/uL (0.4-2.0); MONOCYTES % (AUTO) 10.6 (0-10); NEUTROPHILS # (AUTO) 7.9 K/ul (2.0-6.9); NEUTROPHILS % (AUTO) 78.9 % (42.2-75.2); PLATELET COUNT 161 10^3/uL (140-440); RDW COEFFICIENT OF VARIATION 15.1 % (11.6-14.8); RED BLOOD COUNT 4.63 10^6/ul (4.70-6.10); WHITE BLOOD COUNT 10.03 K/ul (4.2-10.2)
[2023-07-13] MEDS: XANAX PO SCH ×3 (05:10→17:30)
[2023-07-13 05:21] LABS: ALBUMIN 3.67 g/dL (3.5-5.0); ALKALINE PHOSPHATASE 108.6 U/L (56-119); ASPARTATE AMINO TRANSFERASE 32.9 U/L (17-59); BILIRUBIN,TOTAL 2.85 mg/dL (0.2-1.3); BLOOD UREA NITROGEN 28.6 mg/dL (9-20); CALCIUM 9.09 mg/dL (8.4-10.2); CARBON DIOXIDE 35.6 mmol/L (22-30.0); CHLORIDE 95.9 mmol/L (98-107); CREATININE 1.16 mg/dL (0.60-1.10); GLUCOSE 145.2 mg/dL (74-106); POTASSIUM 3.42 mmol/L (3.5-5.1); SODIUM 138.4 mmol/L (134.5-145); TOTAL PROTEIN 6.53 g/dL (6.3-8.2)
[2023-07-13] MEDS: LASIX IVP SCH (05:23)
[2023-07-13] MEDS: LASIX IM SCH ×2 (06:50→17:13)
--- NOTE | 2023-07-13 09:10 | PCM.PROG ---
Date/Time Seen Date Seen by Provider: 07/13/23 Time Seen by Provider: 08:30 Provider Provider: DOLORES CURRY, [facility] Chief Complaint Chief Complaint: CHF EXACERBATION Subjective Subjective: Agitation last night. Pulled out IV. Required a dose of ativan. Resting comfortably now. Objective Appearance: Positive No Apparent Distress and Thin Chest/Lungs: Positive Symmetrical With Equal Breath Sounds, Clear to Auscultation Bilaterally and Good Air Movement all 4 Lung [place] Heart: Positive RRR and Pulses Normal GI/: Positive Soft, Nontender, Bowel Sounds Normal and No Distention Musculoskeletal: Positive Not Examined Neurological: Positive Sensation Intact, Motor intact and Other (sleeping) Vital Signs Vital Signs: Vital Signs: Last 24 Hours 07/12/23 09:40 07/12/23 10:00 07/12/23 12:49 Temperature 98.2 F Temperature Source Oral Pulse Rate 64 Respiratory Rate 20 Blood Pressure 146/78 H Blood Pressure Mean 100 Blood Pressure Location Right Arm Blood Pressure Position Supine O2 Sat by Pulse Oximetry 97 Oxygen Delivery Method Nasal Cannula Nasal Cannula Oxygen Flow Rate 2 2 Weight Telemetry Type Remote Telemetry Telemetry Monitoring Continues Irregular Telemetry Rate (Approximate) 70-80 BPM EKG QRS Interval 0.11 H Telemetry Strip Reading Afib with BBB 07/12/23 13:58 07/12/23 14:00 07/12/23 19:16 Temperature 98.6 F Temperature Source Oral Pulse Rate 61 Respiratory Rate 20 Blood Pressure 142/64 H Blood Pressure Mean 90 Blood Pressure Location Right Arm Blood Pressure Position Supine O2 Sat by Pulse Oximetry 94 L 88 L Oxygen Delivery Method Nasal Cannula Nasal Cannula Room Air Oxygen Flow Rate 2 2.5 Weight Telemetry Type Telemetry Monitoring Irregular Telemetry Rate (Approximate) EKG QRS Interval Telemetry Strip Reading 07/12/23 20:00 07/12/23 21:57 07/13/23 05:12 Temperature 97.9 F Temperature Source Temporal Artery Scan Pulse Rate 84 Respiratory Rate 19 Blood Pressure 140/64 Blood Pressure Mean 89 Blood Pressure Location Blood Pressure Position Supine O2 Sat by Pulse Oximetry 94 L 94 L Oxygen Delivery Method Nasal Cannula Room Air Room Air Oxygen Flow Rate 2 Weight Telemetry Type Telemetry Monitoring Irregular Telemetry Rate (Approximate) EKG QRS Interval Telemetry Strip Reading 07/13/23 05:16 07/13/23 06:00 Temperature 98.6 F Temperature Source Temporal Artery Scan Pulse Rate 83 Respiratory Rate 16 Blood Pressure 164/87 H Blood Pressure Mean 112 Blood Pressure Location Right Arm Blood Pressure Position Supine O2 Sat by Pulse Oximetry 95 Oxygen Delivery Method Room Air Oxygen Flow Rate Weight 225 lb Telemetry Type Telemetry Monitoring Irregular Telemetry Rate (Approximate) EKG QRS Interval Telemetry Strip Reading Lab Results Lab Results: Lab Results: Last 24 Hours 07/13/23 07/12/23 04:45 15:05 WBC 10.03 RBC 4.63 L Hgb 14.0 Hct 44.7 MCV 96.5 H MCH 30.2 MCHC 31.3 L RDW Coeff of Francisco Javier 15.1 H Plt Count 161 Immature Gran % (Auto) 0.3 Neut % (Auto) 78.9 H Lymph % (Auto) 9.0 L [place] % (Auto) 10.6 H Eos % (Auto) 1.0 Baso % (Auto) 0.2 Neut # (Auto) 7.9 H Lymph # (Auto) 0.9 [place] # (Auto) 1.1 Eos # (Auto) 0.1 Baso # (Auto) 0.0 Immature Gran # (Auto) 0.0 Sodium 138.4 139.2 Potassium 3.42 L 3.20 L Chloride 95.9 L 97.1 L Carbon Dioxide 35.6 H 35.2 H Anion Gap 10.32 10.10 BUN 28.6 H 25.9 H Creatinine 1.16 H 1.20 H Estimated GFR (MDRD) 59.00 57.00 BUN/Creatinine Ratio 24.65 21.58 Glucose 145.2 H 160.4 H Calcium 9.09 8.63 Total Bilirubin 2.85 H AST 32.9 ALT 24.0 Alkaline Phosphatase 108.6 Total Protein 6.53 Albumin 3.67 Globulin 2.86 Albumin/Globulin Ratio 1.28 Additional Comments Additional Comments: I have independently reviewed and interpreted the labs/EKGs/imaging ordered during this hospital stay. I have reviewed outside records that are available in our EMR that pertain to medical stay including imaging/notes/labs from previous visits. Active Medications Active Medications: Medications Generic Name Dose Route Start Last Admin Trade Name Freq PRN Reason Stop Dose Admin Acetaminophen 650 mg 07/11/23 12:48 Acetaminophen 325 Mg Tablet PO Q4H PRN Mild Pain Alprazolam 0.5 mg 07/12/23 10:00 07/13/23 05:18 Alprazolam 0.5 Mg Tablet PO Not Given BIDAC2 THOMAS Atorvastatin Calcium 80 mg 07/11/23 15:40 07/12/23 08:43 Atorvastatin Calcium 20 Mg Tablet PO 80 mg DAILY THOMAS Administration Carvedilol 3.125 mg 07/11/23 17:00 07/12/23 17:12 Carvedilol 3.125 Mg Tablet PO 3.125 mg BIDWM2 THOMAS Administration Ferrous Sulfate 324 mg 07/11/23 15:30 Ferrous Sulfate 324 Mg Tablet.Dr PO 3 TIMES PER WEEK [facility] Furosemide 40 mg 07/13/23 06:15 07/13/23 06:50 Furosemide Inj 40 Mg/4 Ml Vial IM 40 mg BIDAC2 THOMAS Administration Hydralazine HCl 10 mg 07/11/23 14:51 Hydralazine Hcl 20 Mg/Ml Sdv IVP Q6H PRN Hypertension Insulin Human Regular 0 unit 07/11/23 12:57 07/12/23 17:13 Insulin Regular, Human 100 Unit/Ml (3ml) Vial SUBCUT 3 unit PRN PRN Administration Hyperglycemia Protocol Lorazepam 1 mg 07/12/23 18:55 07/12/23 19:55 Lorazepam Inj 2 Mg/Ml Disp.Syringe IM 1 mg Q4H PRN Administration Agitation Losartan Potassium 50 mg 07/11/23 15:40 07/12/23 08:43 Losartan Potassium 25 Mg Tablet PO 50 mg DAILY THOMAS Administration Olanzapine 5 mg 07/11/23 14:51 07/12/23 08:42 Olanzapine 10 Mg Vial IM 5 mg ONCE PRN Administration Agitation Rivaroxaban 15 mg 07/11/23 17:00 07/12/23 17:12 Rivaroxaban 10 Mg Tablet PO 15 mg QPM THOMAS Administration Sodium Chloride 1 syr 07/11/23 21:00 07/13/23 05:13 0.9% Sodium Chloride 10 Ml Disp.Syrin IVF Not Given Q8HR [facility] Trazodone HCl 50 mg 07/12/23 21:00 07/12/23 20:01 Trazodone Hcl 50 Mg Tablet PO 50 mg BEDTIME THOMAS Administration Plan Plan: 1. Acute Hypoxic Respiratory Failure in the setting of CHF Exacerbation - Improving, edema decreased. Continue lasix 40 mg Q12H IM - plan to transition to PO bumex today or tomorrow, strict I&O, daily weight, 1800 fluid restriction, dajuan hose, wean off O2 as tolerated 2. Hypertension - Improving, likely due to agitation, hydralazine given in ER - ordered prn for SBP>160 and DBP>90, continue home medications 3. Chronic Diastolic Heart Failure - last echo in 2019 showed severe aortic stenosis, EF 51-55%, and grade II diastolic dysfunction, worsening pleural effusions noted on x-ray, new echo unchanged findings, per family was following with Cardiology at [facility] - decreased follow-up appointments to yearly due to dementia not candidate for SAVR or TAVR, see #1 for current plan 4. Hypokalemia - Improving, in setting of diuretic use, 3.4 this am, replace telemetry, monitor 5. COPD - chronic, does not appear in exacerbation, monitor 6. CKD - appears at baseline, monitor 7. Weakness/Frequent Falls/Worsening Dementia - refer to SNF for placement upon discharge 8. Diabetes Mellitus, Type 2 - ADA diet, accuchecks qid with ssi, hold oral medications if applicable halfway placement Saturday. Family signed official DNR form today. Review Statement Review Statement: I have personally discussed and reviewed the patient's visit/currently labs/imaging/decision making with Dr. Reyna, my supervising attending. Greater that 50 minutes spent with patient, 50% of the time spent with this patient was devoted to counseling and coordination of care.
[2023-07-13] MEDS: COREG PO SCH ×2 (12:30→17:30)
[2023-07-13] MEDS: COZAAR PO SCH (12:30)
[2023-07-13] MEDS: LIPITOR PO SCH (12:31)
[2023-07-13] MEDS: XARELTO PO SCH (17:30)
[2023-07-13] MEDS: DESYREL PO SCH (20:14)
[2023-07-14] MEDS: ATIVAN IM PRN (02:19)
[2023-07-14] MEDS: XANAX PO SCH ×3 (05:07→20:04)
[2023-07-14] MEDS: LASIX IM SCH (05:20)
[2023-07-14 05:43] LABS: BASOPHILS % (AUTO) 0.4 % (0.0-3.0); EOSINOPHILS # (AUTO) 0.2 K/ul (0.0-0.7); EOSINOPHILS % (AUTO) 2.5 % (0.0-7.0); HEMOGLOBIN 13.5 g/dl (14.0-18.0); IMMATURE GRANULOCYTE % (AUTO) 0.5 % (0.0-5.0); LYMPHOCYTES # (AUTO) 0.7 K/uL (0.60-3.4); LYMPHOCYTES % (AUTO) 8.6 (10.0-50.0); MEAN CORPUSCULAR HEMOGLOBIN 30.2 pg (27.0-31.0); MEAN CORPUSCULAR HGB CONC 31.4 (31.8-35.4); MEAN CORPUSCULAR VOLUME 96.2 fl (80.0-94.0); MONOCYTES # (AUTO) 0.7 K/uL (0.4-2.0); MONOCYTES % (AUTO) 9.6 (0-10); NEUTROPHILS % (AUTO) 78.4 % (42.2-75.2); PLATELET COUNT 169 10^3/uL (140-440); RDW COEFFICIENT OF VARIATION 14.6 % (11.6-14.8); RED BLOOD COUNT 4.47 10^6/ul (4.70-6.10); WHITE BLOOD COUNT 7.69 K/ul (4.2-10.2)
[2023-07-14 05:55] LABS: ALANINE AMINOTRANSFERASE 22.8 U/L (0-50); ALBUMIN 3.2 g/dL (3.5-5.0); ALKALINE PHOSPHATASE 90.4 U/L (56-119); ASPARTATE AMINO TRANSFERASE 29.4 U/L (17-59); BILIRUBIN,TOTAL 2.26 mg/dL (0.2-1.3); BLOOD UREA NITROGEN 30.6 mg/dL (9-20); CALCIUM 8.48 mg/dL (8.4-10.2); CARBON DIOXIDE 37.3 mmol/L (22-30.0); CHLORIDE 94.1 mmol/L (98-107); CREATININE 1.02 mg/dL (0.60-1.10); GLUCOSE 145.9 mg/dL (74-106); POTASSIUM 3.08 mmol/L (3.5-5.1); SODIUM 137.3 mmol/L (134.5-145); TOTAL PROTEIN 5.85 g/dL (6.3-8.2)
[2023-07-14] MEDS: COREG PO SCH ×2 (08:36→16:40)
[2023-07-14] MEDS: COZAAR PO SCH (08:36)
[2023-07-14] MEDS: LIPITOR PO SCH (08:38)
[2023-07-14] MEDS ORDERED: POTASSIUM CHL 10% ORAL SOL PO ONE (08:39)
--- NOTE | 2023-07-14 09:21 | PCM.PROG ---
Date/Time Seen Date Seen by Provider: 07/14/23 Time Seen by Provider: 08:45 Provider [facility] Chief Complaint Chief Complaint: CHF EXACERBATION Subjective Subjective: No fever or significant events overnight. Agitated around 3 am trying to pull out catheter. Give prn ativan. Calm at this time. Will d/c hearn today and see if this helps. Objective Appearance: Positive No Apparent Distress Chest/Lungs: Positive Symmetrical With Equal Breath Sounds, Clear to Auscultation Bilaterally and Good Air Movement all 4 Lung [place] Heart: Positive RRR, Pulses Normal and Murmur GI/: Positive Soft, Nontender, Bowel Sounds Normal and No Distention Musculoskeletal: Positive Not Examined Neurological: Positive Sensation Intact, Motor intact, Reflexes Intact, Alert and Disorinted Vital Signs Vital Signs: Vital Signs: Last 24 Hours 07/13/23 10:00 07/13/23 10:00 07/13/23 14:00 Temperature 96.3 F L 96 F L Temperature Source Temporal Artery Scan Temporal Artery Scan Pulse Rate 53 L 65 Respiratory Rate 14 12 Blood Pressure 154/80 H 164/82 H Blood Pressure Mean 104 109 Blood Pressure Location Right Arm Right Arm Blood Pressure Position Supine Supine O2 Sat by Pulse Oximetry 100 99 Oxygen Delivery Method Nasal Cannula Room Air Nasal Cannula Oxygen Flow Rate 2 2 Weight 07/13/23 14:00 07/13/23 18:00 07/13/23 19:26 Temperature 96 F L Temperature Source Temporal Artery Scan Pulse Rate 68 Respiratory Rate 14 Blood Pressure 127/72 Blood Pressure Mean 90 Blood Pressure Location Right Arm Blood Pressure Position Supine O2 Sat by Pulse Oximetry 99 94 L Oxygen Delivery Method Room Air Nasal Cannula Nasal Cannula Oxygen Flow Rate 2 2 Weight 07/13/23 20:00 07/13/23 21:39 07/14/23 02:00 Temperature 97.1 F L 97.9 F Temperature Source Temporal Artery Scan Temporal Artery Scan Pulse Rate 79 57 L Respiratory Rate 19 20 Blood Pressure 132/82 125/70 Blood Pressure Mean 98 88 Blood Pressure Location Right Arm Left Arm Blood Pressure Position O2 Sat by Pulse Oximetry 100 98 Oxygen Delivery Method Nasal Cannula Nasal Cannula Nasal Cannula Oxygen Flow Rate 2 2 2 Weight 07/14/23 05:02 07/14/23 05:05 07/14/23 05:08 Temperature 97.0 F L Temperature Source Pulse Rate 74 Respiratory Rate 18 Blood Pressure 123/80 Blood Pressure Mean 94 Blood Pressure Location Blood Pressure Position O2 Sat by Pulse Oximetry 93 L 93 L Oxygen Delivery Method Room Air Room Air Oxygen Flow Rate Weight 217 lb 8 oz Lab Results Lab Results: Lab Results: Last 24 Hours 07/14/23 04:59 WBC 7.69 RBC 4.47 L Hgb 13.5 L Hct 43.0 MCV 96.2 H MCH 30.2 MCHC 31.4 L RDW Coeff of Francisco Javier 14.6 Plt Count 169 Immature Gran % (Auto) 0.5 Neut % (Auto) 78.4 H Lymph % (Auto) 8.6 L [place] % (Auto) 9.6 Eos % (Auto) 2.5 Baso % (Auto) 0.4 Neut # (Auto) 6.0 Lymph # (Auto) 0.7 [place] # (Auto) 0.7 Eos # (Auto) 0.2 Baso # (Auto) 0.0 Immature Gran # (Auto) 0.0 Sodium 137.3 Potassium 3.08 L Chloride 94.1 L Carbon Dioxide 37.3 H Anion Gap 8.98 BUN 30.6 H Creatinine 1.02 Estimated GFR (MDRD) 69.00 BUN/Creatinine Ratio 30.00 Glucose 145.9 H Calcium 8.48 Total Bilirubin 2.26 H AST 29.4 ALT 22.8 Alkaline Phosphatase 90.4 Total Protein 5.85 L Albumin 3.20 L Globulin 2.65 Albumin/Globulin Ratio 1.20 Additional Comments Additional Comments: I have independently reviewed and interpreted the labs/EKGs/imaging ordered during this hospital stay. I have reviewed outside records that are available in our EMR that pertain to medical stay including imaging/notes/labs from previous visits. Active Medications Active Medications: Medications Generic Name Dose Route Start Last Admin Trade Name Freq PRN Reason Stop Dose Admin Acetaminophen 650 mg 07/11/23 12:48 Acetaminophen 325 Mg Tablet PO Q4H PRN Mild Pain Alprazolam 1 mg 07/14/23 15:00 Alprazolam 0.5 Mg Tablet PO TID THOMAS Atorvastatin Calcium 80 mg 07/11/23 15:40 07/14/23 08:38 Atorvastatin Calcium 20 Mg Tablet PO 80 mg DAILY THOMAS Administration Bumetanide 1 mg 07/15/23 06:00 Bumetanide 1 Mg Tablet PO QDAC2 THOMAS Carvedilol 3.125 mg 07/11/23 17:00 07/14/23 08:36 Carvedilol 3.125 Mg Tablet PO 3.125 mg BIDWM2 THOMAS Administration Ferrous Sulfate 324 mg 07/11/23 15:30 Ferrous Sulfate 324 Mg Tablet.Dr PO 3 TIMES PER WEEK THOMAS Hydralazine HCl 10 mg 07/11/23 14:51 Hydralazine Hcl 20 Mg/Ml Sdv IVP Q6H PRN Hypertension Insulin Human Regular 0 unit 07/11/23 12:57 07/12/23 17:13 Insulin Regular, Human 100 Unit/Ml (3ml) Vial SUBCUT 3 unit PRN PRN Administration Hyperglycemia Protocol Lorazepam 1 mg 07/12/23 18:55 07/14/23 02:19 Lorazepam Inj 2 Mg/Ml Disp.Syringe IM 1 mg Q4H PRN Administration Agitation Losartan Potassium 50 mg 07/11/23 15:40 07/14/23 08:36 Losartan Potassium 25 Mg Tablet PO 50 mg DAILY THOMAS Administration Potassium Chloride 10 meq 07/14/23 09:00 Potassium Chloride 40 Meq/30 Ml Cup PO DAILY THOMAS Rivaroxaban 15 mg 07/11/23 17:00 07/13/23 17:30 Rivaroxaban 10 Mg Tablet PO 15 mg QPM THOMAS Administration Sodium Chloride 1 syr 07/11/23 21:00 07/14/23 05:17 0.9% Sodium Chloride 10 Ml Disp.Syrin IVF Not Given Q8HR THOMAS Trazodone HCl 100 mg 07/14/23 21:00 Trazodone Hcl 50 Mg Tablet PO BEDTIME THOMAS Plan Plan: 1. Acute Hypoxic Respiratory Failure in the setting of CHF Exacerbation - Improving, edema decreased. D/c lasix today, start home bumex dose in am, strict I&O, daily weight, 1800 fluid restriction, dajuan hose, wean off O2 as tolerated 2. Hypertension - Stable, hydralazine given in ER - ordered prn for SBP>160 and DBP>90, continue home medications 3. Chronic Diastolic Heart Failure - last echo in 2019 showed severe aortic stenosis, EF 51-55%, and grade II diastolic dysfunction, worsening pleural effusions noted on x-ray, new echo unchanged findings, per family was following with Cardiology at [facility] - decreased follow-up appointments to yearly due to dementia not candidate for SAVR or TAVR, see #1 for current plan 4. Hypokalemia - Improving, in setting of diuretic use, 3.0 this am, replace, add scheduled potassium due to continued mildly low levels - have pcp follow upon discharge, telemetry, monitor 5. COPD - chronic, does not appear in exacerbation, monitor 6. CKD - appears at baseline, monitor 7. Weakness/Frequent Falls/Worsening Dementia - refer to SNF for placement upon discharge, added xanax and trazodone for agitation scheduled per family request yesterday - adjusted doses to 1 mg TID for the xanax and 100 mg of trazodone at HS 8. Diabetes Mellitus, Type 2 - ADA diet, accuchecks qid with ssi, hold oral medications if applicable [facility] placement Saturday. D/C nadiya today Review Statement Review Statement: I have personally discussed and reviewed the patient's visit/currently labs/imaging/decision making with Dr. Reyna, my supervising attending. Greater that 50 minutes spent with patient, 50% of the time spent with this patient was devoted to counseling and coordination of care.
[2023-07-14] MEDS: POTASSIUM CHL 10% ORAL SOL PO SCH (09:53)
[2023-07-14] MEDS: XARELTO PO SCH (16:38)
[2023-07-14] MEDS ORDERED: FLOMAX PO ONE (20:37)
[2023-07-14] MEDS: DESYREL PO SCH (20:38)
[2023-07-15] MEDS: BUMEX PO SCH (05:07)
[2023-07-15 06:04] LABS: BASOPHILS % (AUTO) 0.4 % (0.0-3.0); EOSINOPHILS # (AUTO) 0.3 K/ul (0.0-0.7); EOSINOPHILS % (AUTO) 3.7 % (0.0-7.0); HEMATOCRIT 43.1 % (42.0-52.0); HEMOGLOBIN 13.5 g/dl (14.0-18.0); IMMATURE GRANULOCYTE % (AUTO) 0.4 % (0.0-5.0); LYMPHOCYTES # (AUTO) 0.6 K/uL (0.60-3.4); LYMPHOCYTES % (AUTO) 8.4 (10.0-50.0); MEAN CORPUSCULAR HEMOGLOBIN 30.3 pg (27.0-31.0); MEAN CORPUSCULAR HGB CONC 31.3 (31.8-35.4); MEAN CORPUSCULAR VOLUME 96.9 fl (80.0-94.0); MONOCYTES # (AUTO) 0.7 K/uL (0.4-2.0); MONOCYTES % (AUTO) 10.9 (0-10); NEUTROPHILS # (AUTO) 5.2 K/ul (2.0-6.9); NEUTROPHILS % (AUTO) 76.2 % (42.2-75.2); PLATELET COUNT 182 10^3/uL (140-440); RDW COEFFICIENT OF VARIATION 14.6 % (11.6-14.8); RED BLOOD COUNT 4.45 10^6/ul (4.70-6.10); WHITE BLOOD COUNT 6.78 K/ul (4.2-10.2)
[2023-07-15 06:16] LABS: ALANINE AMINOTRANSFERASE 27.1 U/L (0-50); ALBUMIN 3.37 g/dL (3.5-5.0); ALKALINE PHOSPHATASE 101.8 U/L (56-119); ASPARTATE AMINO TRANSFERASE 31.7 U/L (17-59); BILIRUBIN,TOTAL 2.19 mg/dL (0.2-1.3); BLOOD UREA NITROGEN 31.5 mg/dL (9-20); CALCIUM 8.71 mg/dL (8.4-10.2); CARBON DIOXIDE 39.5 mmol/L (22-30.0); CHLORIDE 94.2 mmol/L (98-107); CREATININE 1.03 mg/dL (0.60-1.10); POTASSIUM 3.29 mmol/L (3.5-5.1); SODIUM 138.3 mmol/L (134.5-145); TOTAL PROTEIN 6.19 g/dL (6.3-8.2)
[2023-07-15] MEDS: POTASSIUM CHL 10% ORAL SOL PO SCH (08:24)
[2023-07-15] MEDS: LIPITOR PO SCH (08:24)
[2023-07-15] MEDS: COZAAR PO SCH (08:25)
[2023-07-15] MEDS: COREG PO SCH ×2 (08:25→17:47)
[2023-07-15] MEDS ORDERED: K-DUR PO ONE (08:31)
[2023-07-15] MEDS ORDERED: VISTARIL PO PRN (09:21)
--- NOTE | 2023-07-15 10:42 | PCM.PROG ---
Date/Time Seen Date Seen by Provider: 07/15/23 Time Seen by Provider: 08:45 Provider Provider: Nilsa Garcia PA-C, [facility] Chief Complaint Chief Complaint: CHF EXACERBATION Subjective Subjective: Patient has been at baseline medically. No significant events. Has been doing better on trazodone at night. Family states this morning is the best he's been behavior avalos and he ate a great breakfast. Family would like for him to have something at least prn through the day to keep him from getting agitated, which is reasonable. Changed the xanax to vistaril, for a better side effect profile. We will also start flomax daily. Pt has had incontinence and retention on and off in the past, had retention yesterday after trying to remove hearn, it had to be replaced. Objective Appearance: Positive No Apparent Distress Chest/Lungs: Positive Symmetrical With Equal Breath Sounds, Clear to Auscultation Bilaterally and Good Air Movement all 4 Lung [place] Heart: Positive RRR, Pulses Normal and Murmur GI/: Positive Soft, Nontender, Bowel Sounds Normal and No Distention Musculoskeletal: Positive Not Examined Neurological: Positive Alert, Disorinted and Other (+unable to follow commands due to confusion ) Vital Signs Vital Signs: Vital Signs: Last 24 Hours 07/14/23 14:00 07/14/23 14:00 07/14/23 17:58 Temperature 97.7 F 97.9 F Temperature Source Temporal Artery Scan Temporal Artery Scan Pulse Rate 60 55 L Respiratory Rate 20 20 Blood Pressure 156/84 H 164/72 H Blood Pressure Mean 108 102 Blood Pressure Location Right Arm Right Arm Blood Pressure Position O2 Sat by Pulse Oximetry 100 98 Oxygen Delivery Method Nasal Cannula Nasal Cannula Nasal Cannula Oxygen Flow Rate 2 2 2 Weight 07/14/23 19:03 07/14/23 19:47 07/14/23 21:49 Temperature 98.8 F Temperature Source Temporal Artery Scan Pulse Rate 78 Respiratory Rate 19 Blood Pressure 172/65 H Blood Pressure Mean 100 Blood Pressure Location Left Arm Blood Pressure Position Supine O2 Sat by Pulse Oximetry 94 L 98 Oxygen Delivery Method Nasal Cannula Nasal Cannula Room Air Oxygen Flow Rate 2 2 Weight 07/15/23 02:00 07/15/23 05:06 07/15/23 05:13 Temperature 97.8 F 98.6 F Temperature Source Temporal Artery Scan Temporal Artery Scan Pulse Rate 72 67 Respiratory Rate 18 19 Blood Pressure 165/85 H 155/70 H Blood Pressure Mean 111 98 Blood Pressure Location Right Arm Right Arm Blood Pressure Position Supine O2 Sat by Pulse Oximetry 98 93 L Oxygen Delivery Method Nasal Cannula Nasal Cannula Oxygen Flow Rate 2 2 Weight 225 lb 07/15/23 05:20 07/15/23 10:00 Temperature 96.5 F L Temperature Source Axillary Pulse Rate 54 L Respiratory Rate 18 Blood Pressure 155/65 H Blood Pressure Mean 95 Blood Pressure Location Right Arm Blood Pressure Position Supine O2 Sat by Pulse Oximetry 93 L 95 Oxygen Delivery Method Nasal Cannula Nasal Cannula Oxygen Flow Rate 3 2 Weight Lab Results Lab Results: Lab Results: Last 24 Hours 07/15/23 05:44 WBC 6.78 RBC 4.45 L Hgb 13.5 L Hct 43.1 MCV 96.9 H MCH 30.3 MCHC 31.3 L RDW Coeff of Francisco Javier 14.6 Plt Count 182 Immature Gran % (Auto) 0.4 Neut % (Auto) 76.2 H Lymph % (Auto) 8.4 L [place] % (Auto) 10.9 H Eos % (Auto) 3.7 Baso % (Auto) 0.4 Neut # (Auto) 5.2 Lymph # (Auto) 0.6 [place] # (Auto) 0.7 Eos # (Auto) 0.3 Baso # (Auto) 0.0 Immature Gran # (Auto) 0.0 Sodium 138.3 Potassium 3.29 L Chloride 94.2 L Carbon Dioxide 39.5 H Anion Gap 7.89 BUN 31.5 H Creatinine 1.03 Estimated GFR (MDRD) 68.00 BUN/Creatinine Ratio 30.58 Glucose 165.0 H Calcium 8.71 Total Bilirubin 2.19 H AST 31.7 ALT 27.1 Alkaline Phosphatase 101.8 Total Protein 6.19 L Albumin 3.37 L Globulin 2.82 Albumin/Globulin Ratio 1.19 Additional Comments Additional Comments: I have independently reviewed and interpreted the labs/EKGs/imaging ordered during this hospital stay. I have reviewed outside records that are available in our EMR that pertain to medical stay including imaging/notes/labs from previous visits. Active Medications Active Medications: Medications Generic Name Dose Route Start Last Admin Trade Name Freq PRN Reason Stop Dose Admin Acetaminophen 650 mg 07/11/23 12:48 Acetaminophen 325 Mg Tablet PO Q4H PRN Mild Pain Atorvastatin Calcium 80 mg 07/11/23 15:40 07/15/23 08:24 Atorvastatin Calcium 20 Mg Tablet PO 80 mg DAILY THOMAS Administration Bumetanide 1 mg 07/15/23 06:00 07/15/23 05:07 Bumetanide 1 Mg Tablet PO 1 mg QDAC2 THOMAS Administration Carvedilol 3.125 mg 07/11/23 17:00 07/15/23 08:25 Carvedilol 3.125 Mg Tablet PO 3.125 mg BIDWM2 THOMAS Administration Ferrous Sulfate 324 mg 07/11/23 15:30 Ferrous Sulfate 324 Mg Tablet.Dr PO 3 TIMES PER WEEK [facility] Hydralazine HCl 10 mg 07/11/23 14:51 Hydralazine Hcl 20 Mg/Ml Sdv IVP Q6H PRN Hypertension Hydroxyzine Pamoate 25 mg 07/15/23 09:21 Hydroxyzine Pamoate 25 Mg Capsule PO TID PRN Agitation Insulin Human Regular 0 unit 07/11/23 12:57 07/12/23 17:13 Insulin Regular, Human 100 Unit/Ml (3ml) Vial SUBCUT 3 unit PRN PRN Administration Hyperglycemia Protocol Losartan Potassium 50 mg 07/11/23 15:40 07/15/23 08:25 Losartan Potassium 25 Mg Tablet PO 50 mg DAILY THOMAS Administration Potassium Chloride 10 meq 07/14/23 09:00 07/15/23 08:24 Potassium Chloride 40 Meq/30 Ml Cup PO 10 meq DAILY THOMAS Administration Rivaroxaban 15 mg 07/11/23 17:00 07/14/23 16:38 Rivaroxaban 10 Mg Tablet PO 15 mg QPM THOMAS Administration Trazodone HCl 100 mg 07/14/23 21:00 07/14/23 20:38 Trazodone Hcl 50 Mg Tablet PO Not Given BEDTIME THOMAS Plan Plan: 1. Acute Hypoxic Respiratory Failure in the setting of CHF Exacerbation - Improving, edema decreased. Continue bumex, strict I&O, daily weight, 1800 fluid restriction, dajuan hose, wean off O2 as tolerated 2. Hypertension - Stable, hydralazine given in ER - ordered prn for SBP>160 and DBP>90, continue home medications 3. Acute on Chronic Diastolic Heart Failure exacerbation - last echo in 2019 showed severe aortic stenosis, EF 51-55%, and grade II diastolic dysfunction, worsening pleural effusions noted on x-ray, new echo unchanged findings, per family was following with Cardiology at [facility] - decreased follow-up appointments to yearly due to dementia not candidate for SAVR or TAVR, see #1 for current plan 4. Hypokalemia - Improving, in setting of diuretic use, 3.0 this am, replace, add scheduled potassium due to continued mildly low levels - have pcp follow upon discharge, telemetry, monitor 5. COPD - chronic, does not appear in exacerbation, monitor 6. CKD - appears at baseline, monitor 7. Weakness/Frequent Falls/Worsening Dementia - refer to SNF for placement upon discharge, Continue trazodone for agitation scheduled per family request yesterday. Stop scheduled xanax, will change to prn vistaril. 8. Diabetes Mellitus, Type 2 - ADA diet, accuchecks qid with ssi, hold oral medications if applicable 9. Urinary retention - Cont hearn. Add flomax daily. Consider trial of removing hearn in a few weeks. 10. Aortic stenosis - Not a candidate for intervention. 11. Chronic a fib - Cont xarelto. Dispo: discharge delayed while awaiting placement for SNF DVT: Xarelto Review Statement Review Statement: I have personally discussed and reviewed the patient's visit/currently labs/imaging/decision making with Dr. Reyna, my supervising attending. Greater that 50 minutes spent with patient, 50% of the time spent with this patient was devoted to counseling and coordination of care.
[2023-07-15] MEDS: HUMULIN R SUBCUT PRN (13:01)
[2023-07-15] MEDS: XARELTO PO SCH (17:47)
[2023-07-15] MEDS: DESYREL PO SCH (20:20)
[2023-07-15] MEDS ORDERED: FLOMAX PO SCH (21:00)
[2023-07-16] MEDS: BUMEX PO SCH (05:15)
[2023-07-16 05:31] LABS: BASOPHILS % (AUTO) 0.3 % (0.0-3.0); EOSINOPHILS # (AUTO) 0.2 K/ul (0.0-0.7); EOSINOPHILS % (AUTO) 2.5 % (0.0-7.0); HEMOGLOBIN 12.9 g/dl (14.0-18.0); IMMATURE GRANULOCYTE % (AUTO) 0.6 % (0.0-5.0); LYMPHOCYTES # (AUTO) 0.7 K/uL (0.60-3.4); LYMPHOCYTES % (AUTO) 10.2 (10.0-50.0); MEAN CORPUSCULAR HEMOGLOBIN 30.3 pg (27.0-31.0); MEAN CORPUSCULAR HGB CONC 31.5 (31.8-35.4); MEAN CORPUSCULAR VOLUME 96.2 fl (80.0-94.0); MONOCYTES # (AUTO) 0.9 K/uL (0.4-2.0); MONOCYTES % (AUTO) 11.8 (0-10); NEUTROPHILS # (AUTO) 5.4 K/ul (2.0-6.9); NEUTROPHILS % (AUTO) 74.6 % (42.2-75.2); PLATELET COUNT 165 10^3/uL (140-440); RDW COEFFICIENT OF VARIATION 14.6 % (11.6-14.8); RED BLOOD COUNT 4.26 10^6/ul (4.70-6.10); WHITE BLOOD COUNT 7.23 K/ul (4.2-10.2)
[2023-07-16 05:45] LABS: ALANINE AMINOTRANSFERASE 33.1 U/L (0-50); ALBUMIN 3.14 g/dL (3.5-5.0); ALKALINE PHOSPHATASE 114.1 U/L (56-119); BILIRUBIN,TOTAL 2.13 mg/dL (0.2-1.3); CALCIUM 8.58 mg/dL (8.4-10.2); CHLORIDE 94.7 mmol/L (98-107); CREATININE 0.93 mg/dL (0.60-1.10); GLUCOSE 176.2 mg/dL (74-106); POTASSIUM 3.85 mmol/L (3.5-5.1); SODIUM 134.1 mmol/L (134.5-145); TOTAL PROTEIN 5.86 g/dL (6.3-8.2)
[2023-07-16] MEDS: COREG PO SCH (07:59)
[2023-07-16] MEDS: COZAAR PO SCH (08:00)
[2023-07-16] MEDS: LIPITOR PO SCH (08:00)
[2023-07-16] MEDS: POTASSIUM CHL 10% ORAL SOL PO SCH (08:08)
[2023-07-16 10:37] VITALS: BP 124/68; PULSE 54; RESP 20; TEMP 97
--- NOTE | 2023-07-16 10:42 | DCSUM ---
Admission Date Admission Date: 07/11/23 Discharge Date Discharge Date: 07/16/23 Admission Diagnosis Admission Diagnosis: 1. Acute hypoxic respiratory failure in setting of CHF exacerbation 2. Acute on chronic diastolic heart failure exacerbation Discharge Diagnosis Discharge Diagnosis: 1. Acute Hypoxic Respiratory Failure in the setting of CHF Exacerbation - Im proving 2. Hypertension - Stable 3. Acute on Chronic Diastolic Heart Failure exacerbation - Improved 4. Hypokalemia - Resolved 5. COPD - chronic 6. CKD - appears at baseline, monitor 7. Weakness/Frequent Falls/Worsening Dementia 8. Diabetes Mellitus, Type 2 - 9. Urinary retention - Cont hearn 10. Aortic stenosis - Not a candidate for intervention. 11. Chronic a fib - Cont xarelto. Hospital Provider Hospital Provider: RUTHIE ORTEGA PA-C, [facility] Physician Primary Care Physician: ELSI CHEEK APRN Summary of History and Physical Summary of History and Physical: 88 yo male presented with family from home for weakness and worsening confusion. Patient has pmh of dementia and is unable to provide HPI and ROS. Patient has experienced 2 falls in the last 3 days and has continued to become more weak per daughter and . states he is too much for her to take care of at this point and is requesting longterm placement once patient becomes medically stable. Denies any injuries since his fall that they are aware of. Does have bruising to the R eye from the fall 3 days ago. In ER O2 sat was dropping into the 90s. He was placed on 2L of O2 and improved to 96-97%. He also has pmh of CHF and bnp was found to be >07043. CXR showing heart failure. CT head negative. Hospital Course Subjective: Patient was treated with IV lasix and was transitioned to bumex daily, home dose increased. He tolerated it well. Diuresed well. He still continued to require 1- 3L O2 prn. Likely will be a chronic requirement for him. He was agitated which has been ongoing at home. He was started on trazodone at night. He was given prn benzos for agitation. Overall he did better and had much better behaviors by discharge. Benzos were changed to prn vistaril however it has not been necessary in over 24 hours. He had some urinary retention, hearn placed, once removed had retention again. Was started on flomax. 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 Risk for UTI. Family ultimately decided on longterm placement. Pt will be discharge to [facility]. Family is interested in hospice at a later date and will f/u with SNF regarding a consult when they would like to pursue it. Recommend repeat bmp in 1 week to monitor renal and potassium status. Appearance: Pleasant, No Apparent Distress, Alert and Other (+disoriented ) HEENT: MMM CVS: Other (+murmur ) Abdomen: Soft, Non-Tender and No Distention Respiratory: No Accessory Muscle Use Extremities: No Edema Vital Signs: Most Recent Vital Signs Temperature 97.0 F L 07/16/23 10:00 Temperature Source Axillary 07/16/23 10:00 Temperature Source Infrared 07/11/23 09:47 Pulse Rate 54 L 07/16/23 10:00 Respiratory Rate 20 07/16/23 10:00 Blood Pressure 124/68 07/16/23 10:00 Blood Pressure Mean 86 07/16/23 10:00 Blood Pressure Location Left Arm 07/16/23 10:00 Blood Pressure Position Supine 07/16/23 10:00 O2 Sat by Pulse Oximetry 96 07/16/23 10:00 Oxygen Delivery Method Nasal Cannula 07/16/23 10:00 Oxygen Flow Rate 2 07/16/23 10:00 Height 6 ft 2 in 07/11/23 14:39 Weight 226 lb 4.8 oz 07/16/23 05:05 Telemetry Type Remote Telemetry 07/12/23 12:49 Telemetry Monitoring Continues 07/12/23 12:49 Irregular Telemetry Rate (Approximate) 70-80 BPM 07/12/23 12:49 Telemetry Heart Rate 63 07/12/23 07:00 EKG QRS Interval 0.11 H 07/12/23 12:49 Telemetry Strip Reading Afib with BBB 07/12/23 12:49 Imaging: EXAM: CHEST RADIOGRAPH TECHNIQUE: Single frontal chest radiograph. HISTORY: Cough. Altered mental status. COMPARISON: 11/08/2022 FINDINGS: The patient is mildly leaning and rotated to the left. Sternotomy and CABG, again noted. EKG leads project over the chest. Calcified granuloma of the right mid lung, again noted. At least mild bibasilar atelectasis. Interval development of pulmonary venous congestion and mild interstitial edema. New tubular structure along the lateral aspect of the left hilum, either a congested vessel or mucus plugging. Bilateral pleural effusions, moderate on the left and small on the right, progressed. No visible pneumothorax. Stable cardiomegaly. No acute displaced rib fractures are identified. IMPRESSION: 1. Stable cardiomegaly with progression of the pulmonary venous congestion and interstitial edema. 2. Bilateral pleural effusions, moderate on the left and small on the right, progressed. EXAMINATION: HEAD CT WITHOUT CONTRAST HISTORY: Fall 3 days prior. The patient takes blood thinners. TECHNIQUE: Noncontrast CT of the brain was performed with images acquired from skull base to vertex. 2-D coronal and sagittal reformatted images were obtained from the axial source images. Contrast Dose: None. CT Dose Reduction Techniques Performed: Yes. COMPARISON: None. FINDINGS: Mild to moderate global atrophy. No intracranial hemorrhage or significant extra-axial fluid collection. Griffin cisterna magna, a normal variant. Mild nonspecific low-density changes of the periventricular white matter. James white differentiation is preserved. No mass effect or midline shift. No hydrocephalus. The orbits have a normal appearance. The visualized mastoid air cells and paranasal sinuses are clear. No visible skull fracture. IMPRESSION: 1. No acute intracranial findings. 2. Mild to moderate global atrophy. 3. Mild chronic microvascular ischemic changes. Lab Results Last 24 Hours: 07/16/23 05:21 WBC 7.23 RBC 4.26 L Hgb 12.9 L Hct 41.0 L MCV 96.2 H MCH 30.3 MCHC 31.5 L RDW Coeff of Francisco Javier 14.6 Plt Count 165 Immature Gran % (Auto) 0.6 Neut % (Auto) 74.6 Lymph % (Auto) 10.2 [place] % (Auto) 11.8 H Eos % (Auto) 2.5 Baso % (Auto) 0.3 Neut # (Auto) 5.4 Lymph # (Auto) 0.7 [place] # (Auto) 0.9 Eos # (Auto) 0.2 Baso # (Auto) 0.0 Immature Gran # (Auto) 0.0 Sodium 134.1 L Potassium 3.85 Chloride 94.7 L Carbon Dioxide 37.0 H Anion Gap 6.25 BUN 31.0 H Creatinine 0.93 Estimated GFR (MDRD) 77.00 BUN/Creatinine Ratio 33.33 Glucose 176.2 H Calcium 8.58 Total Bilirubin 2.13 H AST 34.0 ALT 33.1 Alkaline Phosphatase 114.1 Total Protein 5.86 L Albumin 3.14 L Globulin 2.72 Albumin/Globulin Ratio 1.15 Discharge Instructions Discharge Planning: Discharge Planning > [address] Gisel Reyna. Discharge Medications: Medications at Discharge (Home Meds & RX) ferrous sulfate 324 mg (65 mg iron) tablet,delayed release 324 mg PO 3 TIMES PER WEEK #60 tab-caps 03/15/14 calcium cmb no.1-vit [id number] 120 mg-1,000 unit-10 mg tablet (Vitamin D3 (with calcium cit-phos)) 1 ea PO DAILY 06/22/14 fish oil-fat acid comb8-herb [id number] 1,200 mg (400 [id number]) cap ([place] 3-6-9 Triple [place]) 1,200 mg PO DAILY 06/22/14 atorvastatin 40 mg tablet 80 mg PO DAILY 05/09/20 losartan 50 mg tablet 50 mg PO DAILY 09/19/22 rivaroxaban 15 mg tablet (Xarelto) 15 mg PO DAILY 09/19/22 bumetanide 1 mg tablet 1 mg PO 1XD #30 tabs 07/16/23 carvedilol 3.125 mg tablet 3.125 mg PO BIDWM2 #60 tabs 07/16/23 hydroxyzine pamoate 25 mg capsule 25 mg PO TID PRN agitation #30 caps 07/16/23 potassium chloride 10 mEq capsule,extended release 10 meq PO DAILY #30 caps 07/16/23 tamsulosin 0.4 mg capsule 0.4 mg PO BEDTIME #30 caps 07/16/23 trazodone 50 mg tablet 100 mg (2 x 50 mg) PO BEDTIME #30 tabs 07/16/23 Discharge Plan Discharge Discharge Orders: Discharge Patient (ONCE); Ordered 07/16/23 Ordered By: RUTHIE ORTEGA Activity Restrictions/Additional Instructions: DISCHARGE TO SNF DIET: HEART HEALTHY, DIABETIC ACTIVITY: TOLERATED, PT/OT DX: CHF, DEMENTIA F/U WITH PCP WITHIN 1 WEEK. REPEAT BMP IN 1 WEEK TO MONITOR POTASSIUM AND CR. Instructions: Heart Failure (DC), Dementia (GEN) Care Plan Goals: Problem: Confusion Goal #1: Maintain safety Instructions: Assess home environment for risk for falls Maintain schedule and do not vary Goal #2: Maximize level of independence Instructions: Encourage family involvement Patient Disposition: TRANSFER SNF Prescriptions: New trazodone 50 mg Tablet 100 mg PO BEDTIME Qty: 30 0RF carvedilol 3.125 mg Tablet 3.125 mg PO BIDWM2 Qty: 60 0RF tamsulosin 0.4 mg Capsule 0.4 mg PO BEDTIME Qty: 30 0RF bumetanide 1 mg Tablet 1 mg PO 1XD Qty: 30 0RF hydroxyzine pamoate 25 mg Capsule 25 mg PO TID PRN (Reason: agitation) Qty: 30 0RF potassium chloride 10 mEq capsule, extended release 10 meq PO DAILY Qty: 30 0RF Continued ferrous sulfate 324 MG tablet,delayed release (DR/EC) 324 mg PO 3 TIMES PER WEEK Qty: 60 [place] 3-6-9 Triple [place] 1,200 MG capsule 1,200 mg PO DAILY Vitamin D3 (calcium cit-phos) 1 EACH tablet 1 ea PO DAILY atorvastatin 40 mg tablet 80 mg PO DAILY losartan 50 mg tablet 50 mg PO DAILY Patient Comments: TAKE 1 TABLET BY MOUTH ONCE DAILY Xarelto 15 mg tablet 15 mg PO DAILY Patient Comments: TAKE 1 TABLET BY MOUTH ONCE DAILY Discontinued carvedilol 6.25 mg tablet See Rx Instructions .ROUTE .COMPLEX Qty: 60 2RF Dose Instruction: Take 1/2 (one-half) tablet by mouth twice daily Rx Instructions: Take 1/2 (one-half) tablet by mouth twice daily bumetanide 1 mg tablet 1 mg PO .COMPLEX Qty: 30 2RF Rx Instructions: 1 mg PO Take 1 tablet PO every 3rd day; Novolin N NPH U-100 Insulin 100 unit/mL suspension 10 unit subcut QAM Patient Comments: decrease dosage 03/26/2023 agaudy dulser Did you review [place] [employer]IST for ALL controlled substances?: Not Applicable Discussed opioids are addictive and Narcan is available by prescription or from pharmacy.: No Condition: Stable
[2023-07-16] MEDS: HUMULIN R SUBCUT PRN (11:07)
== END 2023-07-16 12:45 | DRG 291 ==
LOC: ED 09:42 → MEDSURG B 13:42
PROVIDERS: ADMIT Hospitalist; ATTEND Physician Assistant
DX: E11.9 Type 2 diabetes mellitus without complications; R63.0 Anorexia; R53.83 Other fatigue; I25.810 Atherosclerosis of coronary artery bypass graft(s) without angina pectoris; R60.0 Localized edema; J90 Pleural effusion, not elsewhere classified; J96.00 Acute respiratory failure, unspecified whether with hypoxia or hypercapnia; I35.0 Nonrheumatic aortic (valve) stenosis; R33.9 Retention of urine, unspecified; I13.0 Hypertensive heart and chronic kidney disease with heart failure and stage 1 through stage 4 chronic kidney disease, or unspecified chronic kidney disease; Z20.822 Contact with and (suspected) exposure to COVID-19